=== PATIENT | male | born 1975 | race Caucasian/White ===

== ENCOUNTER 2016-10-30 20:56 | Emergency (ER) | payer MEDICAID ==
[2016-10-30 21:07] VITALS: BP 148/100
--- NOTE | 2016-10-30 21:46 | ED Physician Documentation ---
History of Present Illness - Stated complaint Stated Complaint: NUMBNESS RT SIDE - Chief complaint Chief Complaint: Neuro - History obtained from History obtained from: Patient, Family - History of Present Illness Timing: Today Pain level max: 0 Pain level now: 0 Improved by: klonopin Worsened by: nothing - Additonal information Additional information: Patient is a 41-year-old male who presents to the emergency department complaining of numbness to the lateral aspect of the forearm and approximately 3 cm area, the distal fingertips of the B hands and the distal B toes. Also to the lateral aspect of the right orbit, in an approximately 0.5 cm area. States that this is more tingling than numbness. States that this feels similar to his prior anxiety attacks in the past. No difficulty with speech. No weakness. No difficulty with word finding. No dysarthria. Patient states that he took an extra dose of his Klonopin prior to arrival and symptoms have now resolved Review of Systems Ten Systems: 10 systems reviewed and negative Constitutional: denies: Fever, Chills Throat: denies: Sore throat Cardiac: denies: Chest pain / pressure Respiratory: denies: Cough, Wheezing Skin: denies: Rash Musculoskeletal: denies: Neck pain, Back pain Neurologic: denies: Focal weakness, Confused, Altered mental status, Headache, Head injury Psychiatric: reports: Anxiety PD PAST MEDICAL HISTORY - Past Medical History Past Medical History: Yes Cardiovascular: Hypertension Respiratory: None Neuro: None Endocrine/Autoimmune: None : Other Psych: Depression, Anxiety, Bipolar disorder, Panic attacks - Past Surgical History Past Surgical History: No - Present Medications Home Medications: Ambulatory Orders Medication Instructions Recorded Confirmed Lisinopril 10 mg PO DAILY 01/03/16 10/31/16 Aripiprazole [Abilify] 20 mg PO DAILY 02/17/16 10/31/16 Clonazepam 1 mg PO BID 02/17/16 10/31/16 Sertraline HCl [Zoloft] 100 mg PO DAILY 02/17/16 10/31/16 Olanzapine [Zyprexa] 5 mg PO DAILY #5 tablet 03/19/16 10/31/16 Amoxicillin/Potassium Clav 1 each PO BID #20 tablet 03/22/16 10/31/16 [Augmentin 875-125 Tablet] - Allergies Allergies/Adverse Reactions: Allergies Allergy/AdvReac Type Severity Reaction Status Date / Time No Known Drug Allergies Allergy Verified 10/30/16 21:07 - Social History Does the pt smoke?: Yes Smoking Status: Current every day smoker Does the pt drink ETOH?: No Does the pt have substance abuse?: No - Immunizations Immunizations are current?: No Immunizations: TDAP >10years/unknown - POLST Patient has POLST: No PD ED PE NORMAL - Vitals Vital signs reviewed: Yes - General General: Alert and oriented X 3, No acute distress, Well developed/nourished - HEENT HEENT: PERRL, EOMI, Moist mucous membranes - Neck Neck: Supple, no meningeal sign - Cardiac Cardiac: RRR, Strong equal pulses - Respiratory Respiratory: No respiratory distress, Clear bilaterally - Abdomen Abdomen: Soft, Non tender, Non distended - Back Back: No spinal TTP - Derm Derm: Warm and dry - Neuro Neuro: Alert and oriented X 3, medical genetics director 2-12 intact, No motor deficit, No sensory deficit, Normal speech - Psych Psych: Normal mood, Normal affect Results - Vitals Vitals: Oxygen O2 Source Room air PD MEDICAL DECISION MAKING - ED course Complexity details: considered differential, d/w patient, d/w family ED course: Patient is a 41-year-old bipolar male who had paresthesias to the bilateral fingertips and bilateral toes as well as the lateral aspect of the right forearm and the lateral aspect of the right orbit. These all resolved with an extra dose of Klonopin at home. He now feels normal. NIH stroke scale of 0. No evidence of stroke at this time. No evidence of tumor or mass. Ambulating normally. Normal cerebellar test. We will have him follow-up with his doctor for further evaluation and care. Patient counseled regarding signs and symptoms for which I believe and urgent re-evaluation would be necessary. Patient with good understanding of and agreement to plan and is comfortable going home at this time This document was made in part using voice recognition software. While efforts are made to proofread this document, sound alike and grammatical errors may occur. Departure - Departure Disposition: 01 Home, Self Care Clinical Impression: Anxiety attack Condition: Good Instructions: ED Panic Attack Follow-Up: Kate Maurer ARNP [Primary Care Provider] - Within 1 week Comments: Return if you worsen. This appears to be related to your anxiety tonight Discharge Date/Time: 10/30/16 21:57
== END 2016-10-30 21:57 | disposition home or self-care (01) ==
LOC: ED 20:56
DX: F41.9 Anxiety disorder, unspecified (principal); I10 Essential (primary) hypertension; F17.200 Nicotine dependence, unspecified, uncomplicated
CPT/HCPCS: 99283

== ENCOUNTER 2016-10-31 15:36 | Emergency (ER) | payer MEDICAID ==
--- NOTE | 2016-10-31 18:13 | ED Physician Documentation ---
PD HPI MHE - Stated complaint Stated Complaint: DIZZY,PAIN BEHIND EARS - Chief complaint Chief Complaint: MHE - History obtained from History obtained from: Patient, Family - History of Present Illness Primary symptom: Other (auditory hallucinations) Timing - onset: Today Pain level max: 0 Pain level now: 0 Similar symptoms before: Diagnosis (bipolar) Recently seen: Not recently seen - Additional information Additional information: Patient states that he had a 20-30 minute episode in which he heard voices today. States he could not understand what they were saying but they were not telling him to harm himself or anyone else. Started on abilify today. Review of Systems Constitutional: denies: Fever, Chills Nose: denies: Rhinorrhea / runny nose, Congestion Respiratory: denies: Cough GI: denies: Nausea, Vomiting, Diarrhea Skin: denies: Rash Musculoskeletal: denies: Neck pain, Back pain Neurologic: denies: Headache Psychiatric: denies: Suicidal, Homicidal PD PAST MEDICAL HISTORY - Past Medical History Cardiovascular: Hypertension Respiratory: None Neuro: None Endocrine/Autoimmune: None : Other Psych: Depression, Anxiety, Bipolar disorder, Panic attacks - Past Surgical History Past Surgical History: No - Present Medications Home Medications: Ambulatory Orders Medication Instructions Recorded Confirmed Lisinopril 10 mg PO DAILY 01/03/16 10/31/16 Aripiprazole [Abilify] 20 mg PO DAILY 02/17/16 10/31/16 Clonazepam 1 mg PO BID 02/17/16 10/31/16 Sertraline HCl [Zoloft] 100 mg PO DAILY 02/17/16 10/31/16 Olanzapine [Zyprexa] 5 mg PO DAILY #5 tablet 03/19/16 10/31/16 Amoxicillin/Potassium Clav 1 each PO BID #20 tablet 03/22/16 10/31/16 [Augmentin 875-125 Tablet] - Allergies Allergies/Adverse Reactions: Allergies Allergy/AdvReac Type Severity Reaction Status Date / Time No Known Drug Allergies Allergy Verified 10/30/16 21:07 - Social History Does the pt smoke?: Yes Smoking Status: Current every day smoker Does the pt drink ETOH?: No Does the pt have substance abuse?: No - Immunizations Immunizations are current?: No Immunizations: TDAP >10years/unknown - POLST Patient has POLST: No PD ED PE NORMAL - Vitals Vital signs reviewed: Yes - General General: Alert and oriented X 3, No acute distress, Well developed/nourished - HEENT HEENT: PERRL, Ears normal, Moist mucous membranes, Pharynx benign - Neck Neck: Supple, no meningeal sign - Cardiac Cardiac: RRR - Respiratory Respiratory: No respiratory distress, Clear bilaterally - Abdomen Abdomen: Soft, Non tender, Non distended - Derm Derm: Warm and dry - Neuro Neuro: Alert and oriented X 3, animal breeder 2-12 intact, No motor deficit, No sensory deficit, Normal speech - Psych Psych: Normal mood, Normal affect Results - Vitals Vitals: Vital Signs - 24 hr 10/31/16 10/31/16 15:47 18:41 Temperature 36.0 C L 36.3 C L Heart Rate 108 H 98 Respiratory 16 18 Rate Blood Pressure 105/78 106/75 O2 Saturation 97 98 Oxygen O2 Source Room air PD MEDICAL DECISION MAKING - ED course Complexity details: reviewed old records, re-evaluated patient, considered differential, d/w patient, d/w family, d/w excellence consultant ED course: Patient is a 41-year-old bipolar male who presents to the emergency department with 20-30 minutes of auditory hallucinations today. Had been on Abilify in the past and this did work well for him. Took his first dose of Abilify today. Not currently suicidal or homicidal. Discussed the case with Xochilt Mendoza, whom the pt spoke with earlier today, from [facility] who recommends a next day appointment. This was scheduled through the [facility]. Patient is able to contract for safety and will follow up in the morning. Patient counseled regarding signs and symptoms for which I believe and urgent re-evaluation would be necessary. Patient with good understanding of and agreement to plan and is comfortable going home at this time This document was made in part using voice recognition software. While efforts are made to proofread this document, sound alike and grammatical errors may occur. Departure - Departure Disposition: 01 Home, Self Care Clinical Impression: Hallucinations Condition: Good Instructions: ED Psychosis Follow-Up: Kate Maurer ARNP [Primary Care Provider] - Within 1 week [facility] [Provider Group] - Tomorrow (10 am tomorrow) Comments: Follow up with [facility] in the morning at 10am. Discharge Date/Time: 10/31/16 18:41
[2016-10-31] MEDS ORDERED: OLANZapine ODT 5 MG TABLET TL ONE ×2 (18:38→18:41)
[2016-10-31 18:42] VITALS: BP 106/75
== END 2016-10-31 18:41 | disposition home or self-care (01) ==
LOC: ED 15:36
DX: R44.0 Auditory hallucinations (principal); F31.9 Bipolar disorder, unspecified; I10 Essential (primary) hypertension; F17.200 Nicotine dependence, unspecified, uncomplicated
CPT/HCPCS: 99283; A9270

== ENCOUNTER 2016-11-14 08:16 | Emergency (ER) | payer MEDICAID ==
[2016-11-14 08:24] VITALS: BP 142/104
--- NOTE | 2016-11-14 08:25 | ED Physician Documentation ---
PD HPI SKIN - Stated complaint Stated Complaint: MALE - Chief complaint Chief Complaint: General - History obtained from History obtained from: Patient - History of Present Illness Timing - onset: Yesterday Timing - duration: Days (2) Timing - details: Gradual onset, Still present Location: Other (area between rectum and base of scrotum) Quality / character: Painful, Burning, Discolored (red). No: Vesicular, Swelling Associated symptoms: No: Fever, Myalgias, Abd pain, N/V/D Similar symptoms before: Has not had sx before Recently seen: Not recently seen Review of Systems Constitutional: denies: Fever, Chills, Myalgias Throat: denies: Sore throat GI: denies: Abdominal Pain, Nausea, Vomiting, Diarrhea : denies: Dysuria, Frequency Skin: reports: Rash. denies: Abrasion (s), Laceration (s) PD PAST MEDICAL HISTORY - Past Medical History Past Medical History: Yes Cardiovascular: Hypertension Respiratory: None Neuro: None Endocrine/Autoimmune: None GI: None : Other HEENT: None Psych: Depression, Anxiety, Bipolar disorder, Panic attacks Musculoskeletal: None Derm: None - Past Surgical History Past Surgical History: No - Present Medications Home Medications: Ambulatory Orders Medication Instructions Recorded Confirmed Lisinopril 10 mg PO DAILY 01/03/16 10/31/16 Aripiprazole [Abilify] 20 mg PO DAILY 02/17/16 10/31/16 Clonazepam 1 mg PO BID 02/17/16 10/31/16 Sertraline HCl [Zoloft] 100 mg PO DAILY 02/17/16 10/31/16 Olanzapine [Zyprexa] 5 mg PO DAILY #5 tablet 03/19/16 10/31/16 Amoxicillin/Potassium Clav 1 each PO BID #20 tablet 03/22/16 10/31/16 [Augmentin 875-125 Tablet] Cephalexin [Keflex] 500 mg PO QID #24 capsule 11/14/16 Clotrimazole/Betamethasone Dip 1 applic TP BID #15 cream..g. 11/14/16 [Clotrimazole-Betamethasone Crm] - Allergies Allergies/Adverse Reactions: Allergies Allergy/AdvReac Type Severity Reaction Status Date / Time No Known Drug Allergies Allergy Verified 11/14/16 08:24 - Social History Does the pt smoke?: Yes Smoking Status: Current every day smoker Does the pt drink ETOH?: No Does the pt have substance abuse?: No - Immunizations Immunizations are current?: Yes Immunizations: TDAP current <10years - POLST Patient has POLST: No PD ED PE NORMAL - Vitals Vital signs reviewed: Yes - General General: Alert and oriented X 3, No acute distress, Well developed/nourished - Abdomen Abdomen: Normal bowel sounds, Soft, Non tender, Non distended - Rectal Rectal: Other (rectum itself is not tender and no hemorrhoids. Forchette area with redness in crease of skin and locally tender. No discharge. No focal induration felt; no abscess. The scrotum itself is not red nor tender. ) - Back Back: No CVA TTP - Extremities Extremities: No tenderness to palpate, Normal ROM s pain - Neuro Neuro: Alert and oriented X 3, No motor deficit, Normal speech Results - Vitals Vitals: Vital Signs - 24 hr 11/14/ 08:22 Temperature 36.1 C L Heart Rate 104 H Respiratory 20 Rate Blood Pressure 142/104 H O2 Saturation 100 Oxygen O2 Source Room air PD MEDICAL DECISION MAKING - ED course Complexity details: considered differential (tenderness with redness but no focal induration in the forchette area. Could be fungal infection topically with tenderness. Consider bacterial instead. He does not seem ill so doubt nec fasc. ), d/w patient Departure - Departure Disposition: 01 Home, Self Care Clinical Impression: Perirectal cellulitis Condition: Stable Record reviewed to determine appropriate education?: Yes Instructions: ED Infec Skin Cellulitis Follow-Up: Kate Maurer ARNP [Primary Care Provider] - Prescriptions: Clotrimazole/Betamethasone Dip [Clotrimazole-Betamethasone Crm] 1 applic TP BID #15 cream..g. Cephalexin [Keflex] 500 mg PO QID #24 capsule Comments: There looks to be some redness and a little bit of swelling in the perirectal area. I presume this is some infection. Topical antifungal cream for possible yeast infection. However usually does not hurt that much and so we will treated as bacterial possibly 2 with cephalexin 4 times a day for 5 or 6 days. Recheck if not improving in the next few days. Ibuprofen 400-600 mg 3 times a day for inflammation and pain. Warm soaks or cleansing with soap and water to the area 2 or 3 times a day. Discharge Date/Time: 11/14/16 08:45
[2016-11-14] MEDS ORDERED: CEPHALEXIN 250 MG CAPSULE PO STA (08:39)
[2016-11-14] MEDS ORDERED: IBUPROFEN 600 MG TABLET PO STA (08:39)
[2016-11-14] MEDS ORDERED: CEPHALEXIN 250 MG CAPSULE PO ONE (08:45)
[2016-11-14] MEDS ORDERED: IBUPROFEN 600 MG TABLET PO ONE (08:46)
== END 2016-11-14 08:45 | disposition home or self-care (01) ==
LOC: ED 08:16
DX: K61.1 Rectal abscess (principal); I10 Essential (primary) hypertension; F17.200 Nicotine dependence, unspecified, uncomplicated
CPT/HCPCS: 99283; A9270

== ENCOUNTER 2016-11-18 11:44 | Emergency (ER) | payer MEDICAID ==
--- NOTE | 2016-11-18 12:23 | ED Physician Documentation ---
PD HPI MALE - Stated complaint Stated Complaint: ABD PX - Chief complaint Chief Complaint: Abd Pain - History obtained from History obtained from: Patient - History of Present Illness Timing - onset: How many days ago (5) Timing - details: Abrupt onset Pain level max: 8 Pain level now: 8 Associated symptoms: Other (rectal pain) Similar symptoms before: Has not had sx before Recently seen: Emergency Dept (3 days ago for same) - Additional information Additional information: Patient states has been constipated recently, during a BM felt a tear. Now continued pain. Review of Systems Constitutional: denies: Fever, Chills GI: reports: Constipation. denies: Abdominal Pain, Nausea, Vomiting, Diarrhea : denies: Dysuria Skin: denies: Rash Musculoskeletal: denies: Neck pain, Back pain PD PAST MEDICAL HISTORY - Past Medical History Past Medical History: Yes Cardiovascular: Hypertension Respiratory: None Neuro: None Endocrine/Autoimmune: None GI: None : Other HEENT: None Psych: Depression, Anxiety, Bipolar disorder, Panic attacks Musculoskeletal: None Derm: None - Past Surgical History Past Surgical History: No - Present Medications Home Medications: Ambulatory Orders Medication Instructions Recorded Confirmed Lisinopril 10 mg PO DAILY 01/03/16 11/18/16 Aripiprazole [Abilify] 20 mg PO DAILY 02/17/16 11/18/16 Clonazepam 1 mg PO BID 02/17/16 11/18/16 Sertraline HCl [Zoloft] 100 mg PO DAILY 02/17/16 11/18/16 Olanzapine [Zyprexa] 5 mg PO DAILY #5 tablet 03/19/16 11/18/16 Cephalexin [Keflex] 500 mg PO QID #24 capsule 11/14/16 11/18/16 Clotrimazole/Betamethasone Dip 1 applic TP BID #15 cream..g. 11/14/16 11/18/16 [Clotrimazole-Betamethasone Crm] Docusate Sodium 250Mg Capsule 250 mg PO DAILY #30 capsule 11/18/16 [Colace 250Mg Capsule] Nitroglycerin [Rectiv] 1 applic RC BID #1 oint...g. 11/18/16 - Allergies Allergies/Adverse Reactions: Allergies Allergy/AdvReac Type Severity Reaction Status Date / Time No Known Drug Allergies Allergy Verified 11/18/16 11:54 - Social History Does the pt smoke?: Yes Smoking Status: Current every day smoker Does the pt drink ETOH?: No Does the pt have substance abuse?: No - Immunizations Immunizations are current?: Yes Immunizations: TDAP current <10years - POLST Patient has POLST: No PD ED PE NORMAL - Vitals Vital signs reviewed: Yes - General General: Alert and oriented X 3, No acute distress - HEENT HEENT: Moist mucous membranes - Neck Neck: Supple, no meningeal sign - Cardiac Cardiac: RRR - Respiratory Respiratory: No respiratory distress, Clear bilaterally - Abdomen Abdomen: Soft, Non tender - Rectal Rectal: Other (TTP over the posterior aspect of the anal sphincter. No tenderness or erythema of the surrounding skin. no bleeding. no internal tenderness. ) - Derm Derm: Warm and dry - Neuro Neuro: Alert and oriented X 3 - Psych Psych: Normal mood, Normal affect Results - Vitals Vitals: Vital Signs - 24 hr 11/18/16 11/18/16 11:52 12:41 Temperature 36.7 C Heart Rate 103 H 91 Respiratory 14 16 Rate Blood Pressure 140/94 H 136/88 H O2 Saturation 100 98 Oxygen O2 Source Room air PD MEDICAL DECISION MAKING - ED course Complexity details: reviewed old records, considered differential, d/w patient ED course: Patient is a 41-year-old male who presents to the emergency department with an apparent rectal fissure. No evidence of abscess, no evidence of infection. Patient is well-appearing, nontoxic. No internal tenderness. All of the pain is localized to the 12 o'clock position of the anal sphincter. Will place on topical nitroglycerin as well as stool softeners. Patient counseled regarding signs and symptoms for which I believe and urgent re-evaluation would be necessary. Patient with good understanding of and agreement to plan and is comfortable going home at this time This document was made in part using voice recognition software. While efforts are made to proofread this document, sound alike and grammatical errors may occur. Departure - Departure Disposition: 01 Home, Self Care Clinical Impression: Rectal fissure Condition: Good Instructions: ED Fissure Anal Ch, Sitz Bath Follow-Up: Kate Maurer ARNP [Primary Care Provider] - Within 3 Days Prescriptions: Docusate Sodium 250Mg Capsule [Colace 250Mg Capsule] 250 mg PO DAILY #30 capsule Nitroglycerin [Rectiv] 1 applic RC BID #1 oint...g. Comments: Use sitz baths twice daily for 10-15 minutes at a time. Your doctor may want to prescribe topical medication if you are not improving with conservative treatment. Return if you worsen. The nitroglycerin cream only requries a small amount at the area of pain. Use it twice daily for a month. Your blood pressure was elevated today on check in to the emergency department. This does not mean that you have hypertension, it is a common phenomenon to check into the emergency department and have elevated blood pressure. I recommend that you see your primary care physician within the week to have it rechecked when you're feeling better. Discharge Date/Time: 11/18/16 12:35
[2016-11-18 12:42] VITALS: BP 136/88
== END 2016-11-18 12:35 | disposition home or self-care (01) ==
LOC: ED 11:44
DX: K60.2 Anal fissure, unspecified (principal); I10 Essential (primary) hypertension; F17.200 Nicotine dependence, unspecified, uncomplicated
CPT/HCPCS: 99283

== ENCOUNTER 2016-11-21 13:43 | Emergency (ER) | payer MEDICAID ==
--- NOTE | 2016-11-21 14:48 | ED Physician Documentation ---
PD HPI HEENT FB - Chief complaint Chief Complaint: Heent - History obtained from History obtained from: Patient - History of Present Illness Timing - onset: Other (Today he has had fullness in both ears with a sensation of liquid from the canals and ringing in both ears. There is no loss of hearing. He has not been sick per se, no runny nose, sore throat, cough, shortness of breath. He is on Keflex for a fungal infection he says in his groin, I showed them the picture of Keflex and he did confirm that was the pill. That is not a known side effect of Keflex. He denies any other new medications and he is not taking aspirin or any other salicylates.) Review of Systems Constitutional: denies: Fever, Chills Ears: reports: Drainage/discharge, Tinnitus/ringing. denies: Loss of hearing, Ear pain, Foreign body Nose: denies: Rhinorrhea / runny nose, Congestion PD PAST MEDICAL HISTORY - Past Medical History Past Medical History: Yes Cardiovascular: Hypertension Respiratory: None Neuro: None Endocrine/Autoimmune: None GI: None : Other HEENT: None Psych: Depression, Anxiety, Bipolar disorder, Panic attacks Musculoskeletal: None Derm: None - Past Surgical History Past Surgical History: No - Present Medications Home Medications: Ambulatory Orders Medication Instructions Recorded Confirmed Lisinopril 10 mg PO DAILY 01/03/16 11/21/16 Aripiprazole [Abilify] 20 mg PO DAILY 02/17/16 11/21/16 Clonazepam 1 mg PO BID 02/17/16 11/21/16 Sertraline HCl [Zoloft] 100 mg PO DAILY 02/17/16 11/21/16 Clotrimazole/Betamethasone Dip 1 applic TP BID #15 cream..g. 11/14/16 11/21/16 [Clotrimazole-Betamethasone Crm] Docusate Sodium 250Mg Capsule 250 mg PO DAILY #30 capsule 11/18/16 11/21/16 [Colace 250Mg Capsule] Neomycin/Polymyx/Hc Otic Drops 4 drops OT TID #1 bottle 11/21/16 [Cortisporin Ear Susp] - Allergies Allergies/Adverse Reactions: Allergies Allergy/AdvReac Type Severity Reaction Status Date / Time No Known Drug Allergies Allergy Verified 11/21/16 13:48 - Social History Does the pt smoke?: Yes Smoking Status: Current every day smoker Does the pt drink ETOH?: No Does the pt have substance abuse?: No - Immunizations Immunizations are current?: Yes Immunizations: TDAP current <10years - POLST Patient has POLST: No PD ED PE NORMAL - Vitals Vital signs reviewed: Yes - General General: Alert and oriented X 3, No acute distress - HEENT HEENT: PERRL, EOMI, Other (TMs are normal, there is mild inflammation of both canals, there is no significant cerumen to speak of. No bony tenderness or mastoid tenderness.) - Neck Neck: Supple, no meningeal sign, No bony TTP - Neuro Neuro: Alert and oriented X 3, poultry culler 2-12 intact, No motor deficit, No sensory deficit, Normal speech - Psych Psych: Normal mood, Normal affect Results - Vitals Vitals: Vital Signs - 24 hr 11/21/16 11/21/16 13:46 15:06 Temperature 36.6 C Heart Rate 103 H 105 H Respiratory 16 20 Rate Blood Pressure 146/96 H 138/87 H O2 Saturation 91 L 96 Oxygen O2 Source Room air PD MEDICAL DECISION MAKING - ED course ED course: Tenderness and a sensation of drainage for the last few hours without objective evidence of ear infection or cerumen impaction. Could be a mild case of otitis externa, we will trial some eardrops but he is referred to ENT for further evaluation and treatment. Departure - Departure Disposition: 01 Home, Self Care Clinical Impression: Tinnitus of both ears Condition: Good Record reviewed to determine appropriate education?: Yes Instructions: Tinnitus Prescriptions: Neomycin/Polymyx/Hc Otic Drops [Cortisporin Ear Susp] 4 drops OT TID #1 bottle Comments: I recommend following up with an ear nose and throat physician if symptoms are persistent for further evaluation and treatment, the closest is in [address], the number is [phone]. Return if worse. Your blood pressure was elevated today on check into the emergency department. This does not mean that you have hypertension, it is a common phenomenon to come to the emergency department and have elevated blood pressure. I recommend that she see her primary care physician within the week to have it rechecked when you are feeling better. Discharge Date/Time: 11/21/16 15:06
[2016-11-21 15:07] VITALS: BP 138/87
== END 2016-11-21 15:06 | disposition home or self-care (01) ==
LOC: ED 13:43
DX: H93.13 Tinnitus, bilateral (principal); I10 Essential (primary) hypertension; F17.200 Nicotine dependence, unspecified, uncomplicated
CPT/HCPCS: 99282; 99283

== ENCOUNTER 2016-12-01 19:24 | Emergency (ER) | payer MEDICAID ==
[2016-12-01 20:00] LABS: BASOPHILS % (AUTO) 0.5 %; EOSINOPHILS # (AUTO) 0.3 10^3/uL (0.0-0.7); EOSINOPHILS % (AUTO) 3.1 %; HCT - HEMATOCRIT 43.2 % (42.0-52.0); HGB - HEMOGLOBIN 15.1 g/dL (14.0-18.0); LYMPHOCYTES # (AUTO) 2.5 10^3/uL (1.5-3.5); LYMPHOCYTES % (AUTO) 27.6 %; MEAN CORPUSCULAR HEMOGLOBIN 30.3 pg (27.0-31.0); MEAN CORPUSCULAR HGB CONC 34.8 g/dL (32.0-36.0); MEAN PLATELET VOLUME 9.2 fL (7.4-11.4); MONOCYTES # (AUTO) 0.6 10^3/uL (0.0-1.0); NEUTROPHILS # (AUTO) 5.8 10^3/uL (1.5-6.6); NEUTROPHILS % (AUTO) 62.8 %; RED BLOOD COUNT 4.97 10^6/uL (4.70-6.10); RED CELL DISTRIBUTION WIDTH 12.5 % (12.0-15.0); UNCORRECTED WHITE BLOOD COUNT 9.2 x10^3/uL; WHITE BLOOD COUNT 9.2 x10^3/uL (4.8-10.8)
[2016-12-01 20:06] LABS: ALBUMIN/GLOBULIN RATIO 1.3 (1.0-2.2); BILIRUBIN,TOTAL 0.4 mg/dL (0.2-1.0); CREATININE 0.8 mg/dL (0.6-1.2); POTASSIUM 3.5 mmol/L (3.5-5.0)
--- NOTE | 2016-12-01 20:09 | XRAY Preliminary Report ---
Exam: XR Chest 1 View IMPRESSION: Normal single view chest. [facility] SITE ID: [id number]
--- NOTE | 2016-12-01 20:11 | XRAY Report ---
EXAM: CHEST RADIOGRAPHY EXAM DATE: 12/01/2016 07:47 PM. CLINICAL HISTORY: Chest pain. COMPARISON: 2 views 12/27/2015. TECHNIQUE: 1 view. FINDINGS: Lungs/Pleura: No focal opacities evident. No pleural effusion. No pneumothorax. Mediastinum: Within exam limitations, cardiomediastinal contour is normal. Other: None. IMPRESSION: Normal single view chest. [facility] Referring Provider Line: [phone] SITE ID: [id number]
--- NOTE | 2016-12-01 20:23 | ED Physician Documentation ---
PD HPI CHEST PAIN - Stated complaint Stated Complaint: CHEST PX - Chief complaint Chief Complaint: Cardiac - History obtained from History obtained from: Patient, Family - History of Present Illness Timing - onset: Today Timing - onset during: Rest Timing - details: Gradual onset, Now resolved Quality: Pressure, Tightness Location: Substernal, Left chest Improved by: Rest Associated symptoms: No: Shortness of air, General Weakness Similar symptoms before: Work up / diagnostics, Treatment Recently seen: Not recently seen - Additional information Additional information: Patient is a 41 year old male with a history of severe anxiety who is presenting to the emergency department for chest pain. Patient states that it started earlier this evening but is getting better on its own. patient has a history of panic attacks but states that this feels a little difference. patient denies any family history of early cardiac disease. Review of Systems Constitutional: denies: Fever, Chills Eyes: denies: Decreased vision, Photophobia Ears: denies: Ear pain, Drainage/discharge Nose: denies: Congestion, Epistaxis Throat: denies: Sore throat Cardiac: reports: Chest pain / pressure. denies: Palpitations, Calf pain Respiratory: denies: Dyspnea, Cough GI: denies: Nausea, Vomiting Skin: denies: Rash, Lesions Musculoskeletal: denies: Neck pain, Back pain, Extremity pain Neurologic: denies: Generalized weakness, Focal weakness Psychiatric: reports: Depressed, Anxiety PD PAST MEDICAL HISTORY - Past Medical History Past Medical History: Yes Cardiovascular: Hypertension Respiratory: None Neuro: None Endocrine/Autoimmune: None GI: None : Other HEENT: None Psych: Depression, Anxiety, Bipolar disorder, Panic attacks Musculoskeletal: None Derm: None - Past Surgical History Past Surgical History: No - Present Medications Home Medications: Ambulatory Orders Medication Instructions Recorded Confirmed Lisinopril 10 mg PO DAILY 01/03/16 12/01/16 Aripiprazole [Abilify] 20 mg PO DAILY 02/17/16 12/01/16 Clonazepam 1 mg PO BID 02/17/16 12/01/16 Sertraline HCl [Zoloft] 100 mg PO DAILY 02/17/16 12/01/16 - Allergies Allergies/Adverse Reactions: Allergies Allergy/AdvReac Type Severity Reaction Status Date / Time No Known Drug Allergies Allergy Verified 12/01/16 19:31 - Social History Does the pt smoke?: Yes Smoking Status: Current every day smoker Does the pt drink ETOH?: No Does the pt have substance abuse?: No - Immunizations Immunizations are current?: Yes Immunizations: TDAP current <10years - POLST Patient has POLST: No PD ED PE NORMAL - Vitals Vital signs reviewed: Yes - General General: Alert and oriented X 3, No acute distress, Well developed/nourished - HEENT HEENT: Atraumatic, PERRL, Pharynx benign - Neck Neck: Supple, no meningeal sign, No JVD - Cardiac Cardiac: RRR, No murmur - Respiratory Respiratory: No respiratory distress - Abdomen Abdomen: Soft, Non tender, Non distended - Derm Derm: Normal color, Warm and dry, No rash - Extremities Extremities: No deformity - Neuro Neuro: Alert and oriented X 3, 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, No motor deficit, No sensory deficit, Normal speech - Psych Psych: Normal mood, Normal affect PD ED PE EXPANDED - General General: Alert, No acute distress Results - Vitals Vitals: Vital Signs - 24 hr 12/01/16 19:29 Temperature 36.8 C Heart Rate 84 Respiratory 18 Rate Blood Pressure 139/96 H O2 Saturation 97 Oxygen O2 Source Room air - EKG (time done) 2000 Rate: Rate (enter#) (71) Rhythm: NSR Leopold: Normal Intervals: Normal SD QRS: Normal Ischemia: Normal ST segments Compare to prior EKG: Unchanged from prior EKG - Labs Labs: Laboratory Tests 12/01/16 12/01/16 12/01/16 19:48 19:48 19:48 WBC 9.2 RBC 4.97 Hgb 15.1 Hct 43.2 MCV 87.0 MCH 30.3 MCHC 34.8 RDW 12.5 Plt Count 255 MPV 9.2 Neut # 5.8 Lymph # 2.5 Sumner # 0.6 Eos # 0.3 Baso # 0.0 Absolute Nucleated RBC 0.00 Nucleated RBCs 0.0 Sodium 140 Potassium 3.5 Chloride 103 Carbon Dioxide 29 Anion Gap 8.0 BUN 14 Creatinine 0.8 Estimated GFR (MDRD) 107 Glucose 87 Calcium 9.0 Total Bilirubin 0.4 AST 16 ALT 14 Alkaline Phosphatase 70 Troponin I < 0.04 Total Protein 7.0 Albumin 3.9 Globulin 3.1 Albumin/Globulin Ratio 1.3 Lipase 34 - Rads (name of study) chest x-ray Radiology: Final report received (no acute disease process) PD MEDICAL DECISION MAKING - ED course Complexity details: reviewed old records, reviewed results, re-evaluated patient , considered differential, d/w patient, d/w family ED course: Patient was seen and examined at bedside. ekg was performed and within normal limits. Patient's other diagnostics including troponin and chest x-ray were negative. Patient had a HEART score of 1 and was stable for discharge with outpatient follow up. Departure - Departure Disposition: 01 Home, Self Care Clinical Impression: Atypical chest pain Condition: Good Instructions: ED Chest Pain NonCardiac Follow-Up: Kate Maurer ARNP [Primary Care Provider] - Within 1 week Comments: Your diagnostics today were within normal limits. there was no sign of cardiac disease. You should still follow up with your pmd for further evaluation and care if this becomes more frequent. You can return to the emergency department at any time for new, worsening or uncontrollable symptoms.
[2016-12-01 20:54] VITALS: BP 119/65
== END 2016-12-01 20:54 | disposition home or self-care (01) ==
LOC: ED 19:24
DX: R07.89 Other chest pain (principal); F32.9 Major depressive disorder, single episode, unspecified; F41.9 Anxiety disorder, unspecified; I10 Essential (primary) hypertension; F17.200 Nicotine dependence, unspecified, uncomplicated
CPT/HCPCS: 36415; 71010; 80053; 83690; 84484; 85025; 93005; 99283

== ENCOUNTER 2021-12-23 09:26 | Emergency (ER) | payer MEDICAID ==
[2021-12-23 10:17] VITALS: BP 186/123
[2021-12-23 10:55] LABS: BASOPHILS # (AUTO) 0.1 10^3/uL (0.0-0.1); BASOPHILS % (AUTO) 0.9 %; EOSINOPHILS # (AUTO) 0.2 10^3/uL (0.0-0.7); EOSINOPHILS % (AUTO) 1.6 %; HCT - HEMATOCRIT 45.7 % (42.0-52.0); HGB - HEMOGLOBIN 15.9 g/dL (14.0-18.0); LYMPHOCYTES # (AUTO) 2.1 10^3/uL (1.5-3.5); LYMPHOCYTES % (AUTO) 16.6 %; MEAN CORPUSCULAR HEMOGLOBIN 28.8 pg (27.0-31.0); MEAN CORPUSCULAR HGB CONC 34.8 g/dL (32.0-36.0); MEAN CORPUSCULAR VOLUME 82.6 fL (80.0-94.0); MEAN PLATELET VOLUME 10.4 fL (7.4-11.4); MONOCYTES # (AUTO) 0.8 10^3/uL (0.0-1.0); MONOCYTES % (AUTO) 6.3 %; NEUTROPHILS # (AUTO) 9.4 10^3/uL (1.5-6.6); NEUTROPHILS % (AUTO) 73.9 %; PLT - PLATELET COUNT 331 10^3/uL (130-450); RED BLOOD COUNT 5.53 10^6/uL (4.70-6.10); WHITE BLOOD COUNT 12.7 x10^3/uL (4.8-10.8)
[2021-12-23 11:08] LABS: ALBUMIN 4.4 g/dL (3.2-5.5); ALBUMIN/GLOBULIN RATIO 1.4 (1.0-2.2); CALCIUM 9.1 mg/dL (8.5-10.3); POTASSIUM 3.3 mmol/L (3.5-5.0); TOTAL PROTEIN 7.5 g/dL (6.7-8.2)
[2021-12-23 11:28] LABS: BILIRUBIN,URINE NEGATIVE (NEGATIVE); GLUCOSE, URINE (UA) NEGATIVE (NEGATIVE); KETONES,URINE (UA) NEGATIVE (NEGATIVE); LEUKOCYTE ESTERASE, URINE NEGATIVE (NEGATIVE); NITRITE,URINE NEGATIVE (NEGATIVE); OCCULT BLOOD,URINE TRACE-INTA (NEGATIVE); PH,URINE 5.5 PH (5.0-7.5); PROTEIN,URINE NEGATIVE (NEGATIVE); UROBILINOGEN,URINE 0.2 (NORMAL) E.U./dL (NORMAL)
[2021-12-23 11:29] LABS: CLARITY,URINE CLEAR (CLEAR)
== END 2021-12-23 13:08 | disposition home or self-care (01) ==
LOC: ED 09:26
DX: Z53.21 Procedure and treatment not carried out due to patient leaving prior to being seen by health care provider (principal)
CPT/HCPCS: 36415; 80053; 81001; 81003; 83690; 85025; 87086

== ENCOUNTER 2021-12-23 18:05 | Emergency (ER) | payer MEDICAID ==
[2021-12-23 18:11] VITALS: BP 191/120
[2021-12-23] MEDS ORDERED: LORazepam 2 MG/ML VIAL IVP STA (18:25)
[2021-12-23] MEDS ORDERED: SODIUM CHLORIDE 0.9% 1,000 ML IV STA (18:26)
--- NOTE | 2021-12-23 18:27 | ED Physician Documentation ---
PD HPI ABD PAIN - Stated complaint Stated Complaint: ABD/EAR PX - Chief complaint Chief Complaint: Abd Pain - History obtained from History obtained from: Patient - Additional information Additional information: 46-year-old gentleman who and anxiety presents for the evaluation of abdominal pain. He has central diffuse migratory abdominal pain that is sometimes sharp sometimes dull since yesterday. 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 No history of abdominal surgeries in the past. He also notes bilateral ear ringing. He was seen here earlier in the day but ended up leaving prior to physician evaluation. Since then he notes ringing in the ears. He did have triage orders done during his earlier visit in the day, he had a normal CBC with the exception of white count of 12.7, normal metabolic panel with the exception of a potassium of 3.3, and a urinalysis was normal with the exception of a specific gravity higher than 1.03. He denies drug use except for occasional marijuana. Review of the chart shows that he does have a history of methamphetamine abuse. He is here with his uncle. Review of Systems Ten Systems: 10 systems reviewed and negative Constitutional: denies: Fever, Chills Nose: denies: Rhinorrhea / runny nose, Congestion Respiratory: denies: Dyspnea, Cough PD PAST MEDICAL HISTORY - Past Medical History Past Medical History: Yes Cardiovascular: Hypertension Respiratory: None Neuro: None Endocrine/Autoimmune: None GI: None : Other HEENT: None Psych: Depression, Anxiety, Bipolar disorder, Panic attacks Musculoskeletal: None Derm: Other - Past Surgical History Past Surgical History: Yes Ortho: Other - Present Medications Home Medications: Ambulatory Orders Medication Instructions Recorded Confirmed lisinopriL [Lisinopril] 10 mg PO DAILY 01/03/16 12/01/16 Aripiprazole [Abilify] 20 mg PO DAILY 02/17/16 12/01/16 Sertraline HCl [Zoloft] 100 mg PO DAILY 02/17/16 12/01/16 clonazePAM [Clonazepam] 1 mg PO BID 02/17/16 12/01/16 - Allergies Allergies/Adverse Reactions: Allergies Allergy/AdvReac Type Severity Reaction Status Date / Time No Known Drug Allergies Allergy Verified 12/23/21 18:08 - Social History Does the pt smoke?: No Smoking Status: Never smoker Does the pt drink ETOH?: No Does the pt have substance abuse?: Yes Substance Use and Type: Marijuana - Immunizations Immunizations are current?: Yes Immunizations: TDAP current <10years - POLST Patient has POLST: No PD ED PE NORMAL - Vitals Vital signs reviewed: Yes - General General: Alert and oriented X 3, Other (He is fidgety and anxious,) - HEENT HEENT: Other (TMs are normal in both sides. He is a picked at scab on the anterior surface of the left ear canal.) - Neck Neck: Supple, no meningeal sign, No bony TTP - Cardiac Cardiac: RRR, No murmur - Respiratory Respiratory: No respiratory distress, Clear bilaterally - Abdomen Abdomen: Normal bowel sounds, Soft, Non tender - Back Back: No CVA TTP, No spinal TTP - Derm Derm: Normal color, Warm and dry - Extremities Extremities: No edema, No calf tenderness / cord - Neuro Neuro: Alert and oriented X 3, Normal speech Results - Vitals Vitals: Vital Signs - 24 hr 12/23/21 12/23/21 18:08 18:11 Temperature 37 C 37.0 C Heart Rate 115 H 115 H Respiratory 20 20 Rate Blood Pressure 191/120 H 191/120 H O2 Saturation 99 99 Oxygen O2 Source Room air - Labs Labs: Laboratory Tests 12/23/21 18:25 Urine Opiates Screen NEGATIVE Ur Oxycodone Screen NEGATIVE Urine Methadone Screen NEGATIVE Ur Propoxyphene Screen NEGATIVE Ur Barbiturates Screen NEGATIVE Ur Tricyclics Screen NEGATIVE Ur Phencyclidine Scrn NEGATIVE Ur Amphetamine Screen NEGATIVE U Methamphetamines Scrn POSITIVE H U Benzodiazepines Scrn NEGATIVE Urine Cocaine Screen NEGATIVE U Cannabinoids Screen NEGATIVE PD MEDICAL DECISION MAKING - ED course ED course: 46-year-old gentleman presents for abdominal pain, benign exam, no localizing features. He is fidgety and tachycardic, review of the chart shows a history of methamphetamine abuse although he denies this. That said his drug screen is positive for same and CT negative for acute pathology. I offered him medication for anxiety and Cortisporin for the sores in his ears. When I offered him help with his methamphetamine abuse he became agitated and declined any further intervention. Departure - Departure Disposition: 01 Home, Self Care Clinical Impression: Methamphetamine abuse Abdominal pain Qualifiers: Abdominal location: generalized Qualified Code(s): R10.84 - Generalized abdominal pain Condition: Good Record reviewed to determine appropriate education?: Yes Instructions: ED Drug Abuse General, ED Abdominal Pain Unkn Cause Male Comments: You are seen today for abdominal pain, thankfully nothing serious came up, the CAT scan was normal. I have offered you medications for anxiety and the sores in your ears which you have declined. I also offered you social work help for your methamphetamine abuse which you have declined. Return anytime if you would like to reconsider. Follow-up with your primary care physician, next available appointment.
[2021-12-23 18:28] LABS: MUDS CUTOFF CONCENTRATIONS CUTOFF CONC BELOW:
[2021-12-23 18:41] LABS: AMPHETAMINE SCREEN,URINE NEGATIVE (NEGATIVE); BARBITURATE SCREEN,UR NEGATIVE (NEGATIVE); BENZODIAZEPINES SCREEN, URINE NEGATIVE (NEGATIVE); COCAINE SCREEN URINE NEGATIVE (NEGATIVE); METHADONE SCREEN, URINE NEGATIVE (NEGATIVE); METHAMPHETAMINES SCREEN, URINE POSITIVE (NEGATIVE); OPIATE SCREEN, URINE NEGATIVE (NEGATIVE); OXYCODONE SCREEN, URINE NEGATIVE (NEGATIVE); PROPOXYPHENE SCREEN, URINE NEGATIVE (NEGATIVE); THC CANNABINOID SCREEN, URINE NEGATIVE (NEGATIVE); TRICYCLIC ANTIDEPRESSANT,URINE NEGATIVE (NEGATIVE)
--- NOTE | 2021-12-23 19:08 | CT Report ---
PROCEDURE: Abdomen/Pelvis W INDICATIONS: IV only, abd pain CONTRAST: IV CONTRAST: Optiray 320 ml: 100 PO CONTRAST: *NO PO CONTRAST TECHNIQUE: After the administration of IV contrast, 5 mm thick sections acquired from the diaphragms to the symp hysis. 5 mm thick coronal and sagittal reformats were acquired. For radiation dose reduction, the f ollowing was used: automated exposure control, adjustment of mA and/or kV according to patient size. COMPARISON: None. FINDINGS: Image quality: Excellent. ABDOMEN: Lung bases: Lung bases are clear. Heart size is normal. Solid organs: Liver and spleen are normal in size and enhancement. Gallbladder is unremarkable. Bi liary system is non dilated. Pancreas enhances normally. No adrenal nodules. Kidneys demonstrate n ormal size and enhancement, without hydronephrosis. Peritoneum and bowel: Bowel loops demonstrate normal wall thickness and caliber. No free fluid or a ir. Appendix is normal. Nodes and vessels: No retroperitoneal or mesenteric adenopathy by size criteria. Aorta and inferior vena cava are normal in size. Miscellaneous: No ventral hernias. PELVIS: Genitourinary: Bladder wall thickness is normal. Miscellaneous: No inguinal hernias or adenopathy. Bones: No suspicious bony lesions. No vertebral body compression fractures. IMPRESSION: No acute intra-abdominal or pelvic process. Reviewed by: Salina Heath MD on 12/23/2021 7:07 PM PDT Approved by: Salina Heath MD on 12/23/2021 7:07 PM PDT Station ID: [id number]
== END 2021-12-23 19:38 | disposition home or self-care (01) ==
LOC: ED 18:05
DX: F15.10 Other stimulant abuse, uncomplicated (principal); R10.84 Generalized abdominal pain; L98.9 Disorder of the skin and subcutaneous tissue, unspecified
CPT/HCPCS: 36415; 74177; 80306; 96374; 99284; 99285; J2060; Q9967

== ENCOUNTER 2021-12-25 03:53 | Emergency (ER) | payer MEDICAID ==
[2021-12-25] MEDS ORDERED: IBUPROFEN 600 MG TABLET PO STA (04:18)
--- NOTE | 2021-12-25 04:22 | ED Physician Documentation ---
PD HPI HEENT - Stated complaint Stated Complaint: EAR PAIN - Chief complaint Chief Complaint: Heent - History obtained from History obtained from: Patient - Additional information Additional information: The patient comes to the emergency department chief complaint of pain the anterior aspect of the entrances to both his external auditory canals. He is not really sure along this is been going on but he would estimate a couple of days, he thinks. He denies fevers or chills. No change in his hearing other than development of some tinnitus over an unclear period of time, but he thinks the last couple days as well. The patient denies any swelling. He thinks he may have had some drainage but he is not sure. No upper respiratory symptoms. The patient denies any head trauma or barotrauma. He does not chronically use your plugs or other ear devices. The patient was just seen here yesterday for abdominal pain, but also complained of tinnitus at that same time. He was offered Cortisporin eardrops but declined these. His drug screen was positive for methamphetamines, though he had only admitted to using them in the past. Review of Systems Ten Systems: 10 systems reviewed and negative Constitutional: reports: Reviewed and negative Eyes: reports: Reviewed and negative Ears: reports: Ear pain, Tinnitus/ringing Nose: reports: Reviewed and negative Throat: reports: Reviewed and negative Cardiac: reports: Reviewed and negative Respiratory: reports: Reviewed and negative GI: reports: Reviewed and negative : reports: Reviewed and negative Skin: reports: Reviewed and negative Musculoskeletal: reports: Reviewed and negative Neurologic: reports: Reviewed and negative Psychiatric: reports: Reviewed and negative Endocrine: reports: Reviewed and negative Immunocompromised: reports: Reviewed and negative PD PAST MEDICAL HISTORY - Past Medical History Past Medical History: Yes Cardiovascular: Hypertension Respiratory: None Neuro: None Endocrine/Autoimmune: None GI: None : Other HEENT: None Psych: Depression, Anxiety, Bipolar disorder, Panic attacks Musculoskeletal: None Derm: Other - Past Surgical History Past Surgical History: Yes Ortho: Other - Present Medications Home Medications: Ambulatory Orders Medication Instructions Recorded Confirmed lisinopriL [Lisinopril] 10 mg PO DAILY 01/03/16 12/01/16 Aripiprazole [Abilify] 20 mg PO DAILY 02/17/16 12/01/16 Sertraline HCl [Zoloft] 100 mg PO DAILY 02/17/16 12/01/16 clonazePAM [Clonazepam] 1 mg PO BID 02/17/16 12/01/16 - Allergies Allergies/Adverse Reactions: Allergies Allergy/AdvReac Type Severity Reaction Status Date / Time No Known Drug Allergies Allergy Verified 12/25/21 03:56 - Social History Does the pt smoke?: No Smoking Status: Never smoker Does the pt drink ETOH?: No Does the pt have substance abuse?: Yes - Immunizations Immunizations are current?: Yes Immunizations: TDAP current <10years - POLST Patient has POLST: No PD ED PE NORMAL - Vitals Vital signs reviewed: Yes - General General: Other (The patient is alert, but fidgety and irritable.) - HEENT HEENT: Atraumatic, PERRL, EOMI, Moist mucous membranes, Dentition benign (No TMJ tenderness or clicking. No facial swelling.), Other (Your exam is entirely normal with the exception of some ill-defined tenderness at the anterior edge of the introitus to the external auditory canals bilaterally. There is no erythema, swelling, or fluctuance. Ear canals are normal. TMs are normal. No mastoid tenderness.) - Neck Neck: Supple, no meningeal sign - Respiratory Respiratory: No respiratory distress - Derm Derm: Normal color, Warm and dry, No rash - Extremities Extremities: No deformity - Neuro Neuro: Other (Alert and grossly oriented.) - Psych Psych: Normal mood, Normal affect Results - Vitals Vitals: Vital Signs - 24 hr 12/25/21 03:56 Temperature 36.4 C L Heart Rate 91 Respiratory 19 Rate Blood Pressure 152/90 H O2 Saturation 98 Oxygen O2 Source Room air PD MEDICAL DECISION MAKING - ED course Complexity details: considered differential, d/w patient, d/w family ED course: I did examine the patient's ears and advised him that I do not see an obvious cause for his pain. Patient was not receptive and constantly interrupted me as of trying to speak to him. He also repeatedly pulled the bill of his hat down over his eyes while he was trying to talk to him and became argumentative. At this point in time, I have offered him ibuprofen and advised him that I have not found anything wrong with his ears and I am not sure why he is experiencing pain. Since the patient refuses to take part in any conversation about possible reasons for the pain or to even allow me to finish a sentence or thought, I am going to discharge him. He is advised to follow-up in primary care and ENT if he has any further concerns. Departure - Departure Disposition: 01 Home, Self Care Clinical Impression: Acute ear pain Qualifiers: Laterality: bilateral Qualified Code(s): H92.03 - Otalgia, bilateral Tinnitus Qualifiers: Laterality: bilateral Qualified Code(s): H93.13 - Tinnitus, bilateral Condition: Stable Instructions: Tinnitus Comments: Your ear exam is normal with the exception of some tenderness of the fronts of The entrances to both your canals. The cause of this is not clear, as your ears both otherwise are completely normal. Please follow-up in primary care or with an ear nose throat specialist for further concerns. Please take ibuprofen as needed and consider getting help with your drug abuse.
[2021-12-25 04:34] VITALS: BP 155/88
== END 2021-12-25 04:32 | disposition home or self-care (01) ==
LOC: ED 03:53
DX: H92.03 Otalgia, bilateral (principal); H93.13 Tinnitus, bilateral
CPT/HCPCS: 99282; A9270

== ENCOUNTER 2021-12-27 02:31 | Outpatient (CLI) | payer MEDICAID | END 2021-12-27 02:32 | disposition critical access hospital (66) | LOC: EMS 02:31 | DX: R44.0 Auditory hallucinations (principal); R44.8 Other symptoms and signs involving general sensations and perceptions; R45.1 Restlessness and agitation; Z78.1 Physical restraint status | CPT/HCPCS: A0425; A0429; A0999 ==

== ENCOUNTER 2021-12-27 03:02 | Emergency (ER) | payer MEDICAID ==
[2021-12-27] MEDS ORDERED: MIDAZOLAM 10 MG/5 ML UDC PO STA ×2 (04:15→04:57)
--- NOTE | 2021-12-27 04:19 | ED Physician Documentation ---
History of Present Illness - Stated complaint Stated Complaint: MHE - Chief complaint Chief Complaint: MHE - History obtained from History obtained from: Patient, EMS - Additonal information Additional information: 46-year-old man with history of methamphetamine abuse presents with active meth intoxication and complaint that he is "hearing voices and I am not sure I am going to do". Patient denies SI or HI. "I want to sleep". Further history limited by patient intoxication Review of Systems Unable to obtain: Intoxicated PD PAST MEDICAL HISTORY - Past Medical History Past Medical History: Yes Cardiovascular: Hypertension Respiratory: None Neuro: None Endocrine/Autoimmune: None GI: None : Other HEENT: None Psych: Depression, Anxiety, Bipolar disorder, Panic attacks Musculoskeletal: None Derm: Other - Past Surgical History Past Surgical History: Yes Ortho: Other - Present Medications Home Medications: Ambulatory Orders Medication Instructions Recorded Confirmed lisinopriL [Lisinopril] 10 mg PO DAILY 01/03/16 12/01/16 Aripiprazole [Abilify] 20 mg PO DAILY 02/17/16 12/01/16 Sertraline HCl [Zoloft] 100 mg PO DAILY 02/17/16 12/01/16 clonazePAM [Clonazepam] 1 mg PO BID 02/17/16 12/01/16 - Allergies Allergies/Adverse Reactions: Allergies Allergy/AdvReac Type Severity Reaction Status Date / Time No Known Drug Allergies Allergy Verified 12/27/21 03:17 - Social History Does the pt smoke?: No Smoking Status: Never smoker Does the pt drink ETOH?: No Does the pt have substance abuse?: Yes Substance Use and Type: Meth - Immunizations Immunizations are current?: Yes Immunizations: TDAP current <10years - POLST Patient has POLST: No PD ED PE NORMAL - Vitals Vital signs reviewed: Yes - General General: Well developed/nourished, Other (Intoxicated with methamphetamine) - HEENT HEENT: Atraumatic, PERRL, EOMI - Neck Neck: Supple, no meningeal sign - Cardiac Cardiac: RRR, Other (Heart murmur present (patient states he has had since )) - Respiratory Respiratory: No respiratory distress, Clear bilaterally - Abdomen Abdomen: Non tender, Non distended - Derm Derm: Normal color, Warm and dry - Extremities Extremities: No deformity - Neuro Neuro: No motor deficit, No sensory deficit - Psych Psych: Other (Initially agitated, acutely intoxicated with meth. Calmed after speaking with me and undergoing physical exam.) Results - Vitals Vitals: Vital Signs - 24 hr 12/27/21 12/27/21 12/27/21 03:11 03:17 05:28 Temperature 36.8 C Heart Rate 90 74 Respiratory 16 15 16 Rate Blood Pressure 151/93 H 127/81 H O2 Saturation 96 95 Oxygen O2 Source Room air - EKG (time done) 0519 Rate: Rate (enter#) (79) Rhythm: NSR Waves: Normal Intervals: Normal AL, Prolonged QT (450) QRS: Normal Ischemia: Normal ST segments Computer interpretation: Agree with computer - Labs Labs: Laboratory Tests 12/27/21 12/27/21 12/27/21 05:17 05:17 05:17 WBC 9.3 RBC 4.76 Hgb 13.9 L Hct 39.0 L MCV 81.9 MCH 29.2 MCHC 35.6 RDW 12.0 Plt Count 281 MPV 10.2 Neut # (Auto) 6.5 Lymph # (Auto) 1.8 Castro # (Auto) 0.6 Eos # (Auto) 0.4 Baso # (Auto) 0.1 Absolute Nucleated RBC 0.00 Nucleated RBC % 0.0 Sodium 135 Potassium 3.1 L Chloride 101 Carbon Dioxide 27 Anion Gap 7.0 BUN 12 Creatinine 0.8 Estimated GFR (MDRD) 105 Glucose 122 H Calcium 8.6 Total Bilirubin 1.4 H AST 14 ALT 16 Alkaline Phosphatase 81 Total Protein 6.4 L Albumin 3.6 Globulin 2.8 Albumin/Globulin Ratio 1.3 Lipase 29 TSH 0.95 Salicylates < 6.0 Acetaminophen < 10 L Ethyl Alcohol < 5.0 PD MEDICAL DECISION MAKING - ED course ED course: 46-year-old man presents acutely intoxicated with methamphetamine, stating that he is hearing voices. While waiting to see the physician he became mildly agitated, requesting to be placed in restraints. Upon my interview he was agreeable to oral Versed for anxiolysis and as a sleep aid. Patient is now resting calmly and cooperative. We will continue to monitor for sobriety. Note that patient's father arrived and is at the bedside. Patient states he had some relief with oral versed but now is feeling anxious again and experiencing a ringing in his ears that causes him to bat at them. He is requesting more medication to alleviate his symptoms and help him rest. offered additional dose of versed and haldol and the patient accepted. Patient resting comfortably at 7am shift change. Patient endorsed to incoming daytime ED MD Dr. Whitmore awaiting social work evaluation. Departure - Departure Clinical Impression: Methamphetamine abuse
[2021-12-27] MEDS ORDERED: HALOPERIDOL 5 MG/ML VIAL IM STA (04:58)
[2021-12-27 05:22] LABS: BASOPHILS # (AUTO) 0.1 10^3/uL (0.0-0.1); BASOPHILS % (AUTO) 0.8 %; EOSINOPHILS # (AUTO) 0.4 10^3/uL (0.0-0.7); EOSINOPHILS % (AUTO) 3.8 %; HGB - HEMOGLOBIN 13.9 g/dL (14.0-18.0); LYMPHOCYTES # (AUTO) 1.8 10^3/uL (1.5-3.5); LYMPHOCYTES % (AUTO) 18.9 %; MEAN CORPUSCULAR HEMOGLOBIN 29.2 pg (27.0-31.0); MEAN CORPUSCULAR HGB CONC 35.6 g/dL (32.0-36.0); MEAN CORPUSCULAR VOLUME 81.9 fL (80.0-94.0); MEAN PLATELET VOLUME 10.2 fL (7.4-11.4); MONOCYTES # (AUTO) 0.6 10^3/uL (0.0-1.0); MONOCYTES % (AUTO) 6.3 %; NEUTROPHILS # (AUTO) 6.5 10^3/uL (1.5-6.6); NEUTROPHILS % (AUTO) 69.9 %; PLT - PLATELET COUNT 281 10^3/uL (130-450); RED BLOOD COUNT 4.76 10^6/uL (4.70-6.10); WHITE BLOOD COUNT 9.3 x10^3/uL (4.8-10.8)
[2021-12-27 05:36] LABS: ACETAMINOPHEN < 10 ug/mL (10-30); ALBUMIN 3.6 g/dL (3.2-5.5); ALBUMIN/GLOBULIN RATIO 1.3 (1.0-2.2); ALKALINE PHOSPHATASE 81 IU/L (42-121); ALT ALANINE AMINOTRANSFERASE 16 IU/L (10-60); AST ASPARTATE AMINOTRANSFERASE 14 IU/L (10-42); BILIRUBIN,TOTAL 1.4 mg/dL (0.2-1.0); BUN - BLOOD UREA NITROGEN 12 mg/dL (6-20); CALCIUM 8.6 mg/dL (8.5-10.3); CARBON DIOXIDE - CO2 27 mmol/L (21-32); CHLORIDE 101 mmol/L (101-111); CREATININE 0.8 mg/dL (0.6-1.2); ETOH - ETHANOL < 5.0 mg/dL; GFR - MDRD 105 (>89); GLUCOSE 122 mg/dL (70-100); LIPASE 29 U/L (22-51); POTASSIUM 3.1 mmol/L (3.5-5.0); SALICYLATE < 6.0 mg/dL; SODIUM 135 mmol/L (135-145); TOTAL PROTEIN 6.4 g/dL (6.7-8.2)
--- OUTSIDE RECORDS SUMMARY | 2021-12-27 05:48 | EXTERNAL MEDICAL SUMMARY RPT | Continuity of Care Document ---
:1975 Author Organization [facility] Address [address] [place] [address] Phone Allergies No information. Encounters No information. Functional Status No information. Immunizations No information. Medications No information. Problems No information. Procedures No information. Results/Labs test date author facility value unit interpret ation Result panel 1 (unknown) (no (unknown) (unknown) (no value) (units (unk nown) date) unknown) (unknown) (no (unknown) (unknown) <Electronically (units (unknown) date) signed by Aaron unknown) Yogesh De Paz> (unknown) (no (unknown) (unknown) *If you do not (units (unknown) date) have a primary care unknown) provider please contact the [facility] (unknown) (no (unknown) (unknown) *Please continue (units (unknown) date) to take your unknown) regular medications as directed. (unknown) (no (unknown) (unknown) *Please follow up (units (unknown) date) with your primary unknown) care provider in 2-3 days, call for an (unknown) (no (unknown) (unknown) *Return to (units (unk nown) date) Emergency unknown) Department if you should have any new, worsening or (unknown) (no (unknown) (unknown) *What to do: (units (u nknown) date) unknown) (unknown) (no (unknown) (unknown) *You have been (units (unknown) date) diagnosed with unknown) [acute left otitis media] (unknown) (no (unknown) (unknown) [id number] (units (unkno wn) date) unknown) (unknown) (no (unknown) (unknown) 12/25/21 (units (unkno wn) date) unknown) (unknown) (no (unknown) (unknown) 12/26/21 0649 (units ( unknown) date) unknown) (unknown) (no (unknown) (unknown) 1 tab PO Q12H Qty: (units (unknown) date) 20 0RF unknown) (unknown) (no (unknown) (unknown) 12 point review of (units (unknown) date) systems is negative unknown) except for those stated above (unknown) (no (unknown) (unknown) 18:11 12/25/21 (units (unknown) date) unknown) (unknown) (no (unknown) (unknown) 21:19 (units (unkno wn) date) unknown) (unknown) (no (unknown) (unknown) 46-year-old male (units (unknown) date) smoker with unknown) occasional use of methamphetamines presents with (unknown) (no (unknown) (unknown) Activity (units (unkno wn) date) Restrictions/Additi unknown) onal Instructions: (unknown) (no (unknown) (unknown) Acute otitis media (units (unknown) date) unknown) (unknown) (no (unknown) (unknown) Age/Sex: 46 / M (units (unknown) date) unknown) (unknown) (no (unknown) (unknown) Allergies (units (unkn own) date) unknown) (unknown) (no (unknown) (unknown) Allergy/AdvReac (units (unknown) date) Type Severity unknown) Reaction Status Date / Time (unknown) (no (unknown) (unknown) Amoxicillin/Clavul (units (unknown) date) anate Potassium unknown) (Amoxicillin/Clav 875/125 Mg) 1 tab PO NOW (unknown) (no (unknown) (unknown) BACK: Nontender (units (unknown) date) without deformity unknown) or crepitance. No flank tenderness. (unknown) (no (unknown) (unknown) Blood Pressure (units (unknown) date) 155/111 H 12/25/21 unknown) 18:11 (unknown) (no (unknown) (unknown) Blood Pressure (units (unknown) date) 155/111 H 165/84 H unknown) (unknown) (no (unknown) (unknown) CARDIOVASCULAR: (units (unknown) date) Denies chest pain, unknown) palpitations, orthopnea, edema, (unknown) (no (unknown) (unknown) CARDIOVASCULAR: (units (unknown) date) Regular rate and unknown) rhythm without murmurs, gallops, or rubs. (unknown) (no (unknown) (unknown) Chief complaint: (units (unknown) date) Toxicology Problem unknown) (unknown) (no (unknown) (unknown) Clinical (units (unkno wn) date) Impression: unknown) (unknown) (no (unknown) (unknown) Course (units (unkno wn) date) unknown) (unknown) (no (unknown) (unknown) : 1975 (units (unknown) date) Acct:[id number] unknown) (unknown) (no (unknown) (unknown) Date of Service: (units (unknown) date) 12/25/21 unknown) (unknown) (no (unknown) (unknown) Departure (units (unkn own) date) unknown) (unknown) (no (unknown) (unknown) Discharge Plan (units (unknown) date) unknown) (unknown) (no (unknown) (unknown) Discontinued (units (u nknown) date) Medications unknown) (unknown) (no (unknown) (unknown) Documented By: ADK (units (unknown) date) unknown) (unknown) (no (unknown) (unknown) Documented By: ANSON (units (unknown) date) unknown) (unknown) (no (unknown) (unknown) ENT: Nose without (units (unknown) date) bleeding, purulent unknown) drainage. Throat without erythema, (unknown) (no (unknown) (unknown) ER Physician: (units ( unknown) date) Aaron De Paz D.O. unknown) (unknown) (no (unknown) (unknown) EXTREMITIES: No (units (unknown) date) edema or joint unknown) tenderness. (unknown) (no (unknown) (unknown) EYES: Pupils equal (units (unknown) date) round and reactive. unknown) Extraocular motions intact. No scleral (unknown) (no (unknown) (unknown) Emergency Report (units (unknown) date) unknown) (unknown) (no (unknown) (unknown) Exam Narrative: (units (unknown) date) unknown) (unknown) (no (unknown) (unknown) Exam (units (unkno wn) date) unknown) (unknown) (no (unknown) (unknown) GASTROINTESTINAL: (units (unknown) date) Abdomen soft, unknown) non-tender, nondistended. (unknown) (no (unknown) (unknown) GASTROINTESTINAL: (units (unknown) date) Denies nausea, unknown) vomiting, abdominal pain, diarrhea, (unknown) (no (unknown) (unknown) GENERAL: Denies (units (unknown) date) chills, fatigue, unknown) malaise, fever, sweats. (unknown) (no (unknown) (unknown) GENERAL: [46] year (units (unknown) date) old patient appears unknown) stated age. Well-developed patient, in (unknown) (no (unknown) (unknown) : Denies (units (unk nown) date) dysuria, frequency, unknown) incontinence, hematuria, urinary retention. (unknown) (no (unknown) (unknown) General (units (unkno wn) date) unknown) (unknown) (no (unknown) (unknown) HEAD: Atraumatic. (units (unknown) date) Normocephalic. unknown) (unknown) (no (unknown) (unknown) HEENT: See HPI (units (unknown) date) unknown) (unknown) (no (unknown) (unknown) HPI - General (units ( unknown) date) Adult unknown) (unknown) (no (unknown) (unknown) HPI narrative: (units (unknown) date) unknown) (unknown) (no (unknown) (unknown) Rashaad Redd MD (units (unknown) date) [Physician] unknown) (unknown) (no (unknown) (unknown) History of Present (units (unknown) date) Illness unknown) (unknown) (no (unknown) (unknown) Hydrocodone (units (un known) date) Bitart/Acetaminophe unknown) n (Hydrocodone/Acet 5/325 Prepack) 1 bottle MISC (unknown) (no (unknown) (unknown) Hydrocodone (units (un known) date) Bitart/Acetaminophe unknown) n (Hydrocodone/Acet 5/325 Tablet) 2 tab PO NOW (unknown) (no (unknown) (unknown) Initial Vital (units ( unknown) date) Signs unknown) (unknown) (no (unknown) (unknown) Initial Vital (units ( unknown) date) Signs: unknown) (unknown) (no (unknown) (unknown) Instructions: (units ( unknown) date) Middle Ear unknown) Infection (unknown) (no (unknown) (unknown) [facility] (units (unknown) date) [address] unknown) [place] [address] (unknown) (no (unknown) (unknown) Last Admin: (units (un known) date) 12/25/21 20:32 unknown) Dose: 2 tab (unknown) (no (unknown) (unknown) Last Admin: (units (un known) date) 12/25/21 22:48 unknown) Dose: 1 tab (unknown) (no (unknown) (unknown) Last Admin: (units (un known) date) 12/25/21 23:18 unknown) Dose: 1 bottle (unknown) (no (unknown) (unknown) MDM Narrative (units ( unknown) date) unknown) (unknown) (no (unknown) (unknown) MUSCULOSKELETAL: (units (unknown) date) denies weakness, unknown) joint pain, or bony pain (unknown) (no (unknown) (unknown) Medical Decision (units (unknown) date) Making unknown) (unknown) (no (unknown) (unknown) Medical decision (units (unknown) date) making narrative: unknown) (unknown) (no (unknown) (unknown) Medication (units (unk nown) date) Instructions unknown) Recorded (unknown) (no (unknown) (unknown) NECK: Trachea (units ( unknown) date) midline. Non tender unknown) (unknown) (no (unknown) (unknown) NEURO: AOx3. (units (u nknown) date) unknown) (unknown) (no (unknown) (unknown) NEUROLOGIC: Denies (units (unknown) date) weakness, headache, unknown) numbness, change in speech, confusion, (unknown) (no (unknown) (unknown) Narrative (units (unkn own) date) unknown) (unknown) (no (unknown) (unknown) Narrative: (units (unk nown) date) unknown) (unknown) (no (unknown) (unknown) New (units (unkno wn) date) unknown) (unknown) (no (unknown) (unknown) No Known Drug (units ( unknown) date) Allergies Allergy unknown) Verified 12/25/21 20:32 (unknown) (no (unknown) (unknown) ONE (units (unkno wn) date) unknown) (unknown) (no (unknown) (unknown) Ordered: (units (unkno wn) date) unknown) (unknown) (no (unknown) (unknown) Orders (units (unkno wn) date) unknown) (unknown) (no (unknown) (unknown) Oxygen Delivery (units (unknown) date) Method Room Air unknown) (unknown) (no (unknown) (unknown) PSYCHIATRIC: No (units (unknown) date) concerning unknown) psychosocial issues. (unknown) (no (unknown) (unknown) Patient (units (unkno wn) date) Disposition: Home unknown) (unknown) (no (unknown) (unknown) Patient with left (units (unknown) date) ear pain and exam unknown) consistent with otitis media in the absence (unknown) (no (unknown) (unknown) Patient: (units (unkno wn) date) Vaughn Rosenbaum unknown) MR#: [id number] (unknown) (no (unknown) (unknown) Prescriptions: (units (unknown) date) unknown) (unknown) (no (unknown) (unknown) Previous Rx's (units ( unknown) date) unknown) (unknown) (no (unknown) (unknown) Pulse Oximetry 95 (units (unknown) date) unknown) (unknown) (no (unknown) (unknown) Pulse Rate 98 H (units (unknown) date) 12/25/21 18:11 unknown) (unknown) (no (unknown) (unknown) Pulse Rate 98 H (units (unknown) date) 104 H unknown) (unknown) (no (unknown) (unknown) RESPIRATORY: Clear (units (unknown) date) to auscultation. unknown) Breath sounds equal bilaterally. No wheezes, (unknown) (no (unknown) (unknown) RESPIRATORY: (units (u nknown) date) Denies dyspnea, unknown) cough, wheezing, hemoptysis, sputum. (unknown) (no (unknown) (unknown) Referrals: (units (unk nown) date) unknown) (unknown) (no (unknown) (unknown) Related Data (units (u nknown) date) unknown) (unknown) (no (unknown) (unknown) Resource line at (units (unknown) date) [phone]. They unknown) will ask some questions about your medical (unknown) (no (unknown) (unknown) Respiratory Rate (units (unknown) date) 16 12/25/21 18:11 unknown) (unknown) (no (unknown) (unknown) Respiratory Rate (units (unknown) date) 16 20 unknown) (unknown) (no (unknown) (unknown) Review of Systems (units (unknown) date) unknown) (unknown) (no (unknown) (unknown) SEEINSTR ONE (units (u nknown) date) unknown) (unknown) (no (unknown) (unknown) SKIN: Denies rash, (units (unknown) date) skin lesions, or unknown) other (unknown) (no (unknown) (unknown) SKIN: No rash or (units (unknown) date) erythema of visible unknown) areas (unknown) (no (unknown) (unknown) Signed By: (units (unk nown) date) unknown) (unknown) (no (unknown) (unknown) Stated complaint: (units (unknown) date) Pain in both ears unknown) (unknown) (no (unknown) (unknown) Stop: 12/25/21 (units (unknown) date) 20:26 unknown) (unknown) (no (unknown) (unknown) Stop: 12/25/21 (units (unknown) date) 22:45 unknown) (unknown) (no (unknown) (unknown) Stop: 12/25/21 (units (unknown) date) 23:08 unknown) (unknown) (no (unknown) (unknown) Temperature 97.9 F (units (unknown) date) 12/25/21 18:11 unknown) (unknown) (no (unknown) (unknown) Temperature 97.9 F (units (unknown) date) unknown) (unknown) (no (unknown) (unknown) Time Seen by (units (u nknown) date) Provider: 12/25/21 unknown) 21:48 (unknown) (no (unknown) (unknown) Visit Report (units (u nknown) date) Forms: Patient unknown) Portal/API (unknown) (no (unknown) (unknown) Vital Signs - 8 hr (units (unknown) date) unknown) (unknown) (no (unknown) (unknown) Vital Signs (units (un known) date) unknown) (unknown) (no (unknown) (unknown) Vital signs: (units (u nknown) date) unknown) (unknown) (no (unknown) (unknown) [ ] New medication (units (unknown) date) written as a paper unknown) prescription (unknown) (no (unknown) (unknown) [ ] No new (units (unk nown) date) medications given unknown) (unknown) (no (unknown) (unknown) [x ] New (units (unkno wn) date) medication unknown) prescriptions sent to your pharmacy: [ [facility] (unknown) (no (unknown) (unknown) after extensive (units (unknown) date) discussion patient unknown) and father understand and are in agreement (unknown) (no (unknown) (unknown) amoxicillin 875 (units (unknown) date) mg-potassium 1 tab unknown) PO Q12H #20 tabs 12/25/21 (unknown) (no (unknown) (unknown) amoxicillin-pot (units (unknown) date) clavulanate 875-125 unknown) mg tablet (unknown) (no (unknown) (unknown) appointment. Let (units (unknown) date) them know you were unknown) seen in the Emergency Department and that we (unknown) (no (unknown) (unknown) ask that you be (units (unknown) date) seen in follow up. unknown) We will electronically transmit a record of (unknown) (no (unknown) (unknown) chills. Denies any (units (unknown) date) drainage, trauma, unknown) recent flights or diving. He is otherwise (unknown) (no (unknown) (unknown) clavulanate 125 mg (units (unknown) date) tablet unknown) (unknown) (no (unknown) (unknown) concerning (units (unk nown) date) symptoms, such as unknown) [fever greater than 101 F, shaking chills, (unknown) (no (unknown) (unknown) constipation, (units ( unknown) date) melena. unknown) (unknown) (no (unknown) (unknown) erythematous, (units ( unknown) date) bulging and unknown) opacified with loss of landmarks, right tympanic (unknown) (no (unknown) (unknown) his father and a (units (unknown) date) chief complaint of unknown) pain in bilateral ears, left greater than (unknown) (no (unknown) (unknown) history and help (units (unknown) date) get you set up with unknown) a doctor in the community. (unknown) (no (unknown) (unknown) icterus. No (units (un known) date) injection or unknown) drainage. (unknown) (no (unknown) (unknown) in [place]] (units (un known) date) unknown) (unknown) (no (unknown) (unknown) membrane is (units (un known) date) obscured by unknown) cerumen. There is no drainage or exudate noted (unknown) (no (unknown) (unknown) mild distress. (units (unknown) date) Obviously unknown) uncomfortable, rubbing his left ear (unknown) (no (unknown) (unknown) of any rupture or (units (unknown) date) perforation. unknown) Patient is quite bothered by his symptoms and is (unknown) (no (unknown) (unknown) rales, or rhonchi. (units (unknown) date) unknown) (unknown) (no (unknown) (unknown) requesting imaging (units (unknown) date) though at this time unknown) there is no indication for this and (unknown) (no (unknown) (unknown) right. He states (units (unknown) date) that he has been unknown) having pain and fullness with a popping (unknown) (no (unknown) (unknown) seizures, (units (unkn own) date) incoordination. unknown) (unknown) (no (unknown) (unknown) sensation in his (units (unknown) date) ears for the past unknown) few days. He denies any runny nose or sore (unknown) (no (unknown) (unknown) their apparent (units (unknown) date) satisfaction unknown) (unknown) (no (unknown) (unknown) throat. He denies (units (unknown) date) any chest pain or unknown) shortness of breath and has had no fever or (unknown) (no (unknown) (unknown) today's note if (units (unknown) date) your PCP is in our unknown) system (unknown) (no (unknown) (unknown) tonsillar (units (unkn own) date) hypertrophy or unknown) exudate. Airway patent. Left tympanic membrane is (unknown) (no (unknown) (unknown) well and free of (units (unknown) date) complaint unknown) (unknown) (no (unknown) (unknown) with diagnosis and (units (unknown) date) plan. Return unknown) precautions discussed and questions answered to (unknown) (no (unknown) (unknown) worsening pain, (units (unknown) date) persistent vomiting unknown) or other bothersome symptoms] Social History No information. Vital Signs No information.
[2021-12-27] MEDS ORDERED: POTASSIUM CHLORIDE 20 MEQ TABLET PO STA (11:46)
[2021-12-27 12:04] LABS: MUDS CUTOFF CONCENTRATIONS CUTOFF CONC BELOW:
[2021-12-27 12:09] LABS: BILIRUBIN,URINE NEGATIVE (NEGATIVE); GLUCOSE, URINE (UA) NEGATIVE (NEGATIVE); KETONES,URINE (UA) TRACE mg/dL (NEGATIVE); LEUKOCYTE ESTERASE, URINE NEGATIVE (NEGATIVE); NITRITE,URINE NEGATIVE (NEGATIVE); OCCULT BLOOD,URINE NEGATIVE (NEGATIVE); PH,URINE 5.5 PH (5.0-7.5); PROTEIN,URINE NEGATIVE (NEGATIVE); UROBILINOGEN,URINE 0.2 (NORMAL) E.U./dL (NORMAL)
[2021-12-27 12:10] LABS: CLARITY,URINE CLEAR (CLEAR)
[2021-12-27 12:19] LABS: AMPHETAMINE SCREEN,URINE POSITIVE (NEGATIVE); BARBITURATE SCREEN,UR NEGATIVE (NEGATIVE); BENZODIAZEPINES SCREEN, URINE NEGATIVE (NEGATIVE); COCAINE SCREEN URINE NEGATIVE (NEGATIVE); METHADONE SCREEN, URINE NEGATIVE (NEGATIVE); METHAMPHETAMINES SCREEN, URINE POSITIVE (NEGATIVE); OPIATE SCREEN, URINE POSITIVE (NEGATIVE); OXYCODONE SCREEN, URINE POSITIVE (NEGATIVE); PROPOXYPHENE SCREEN, URINE NEGATIVE (NEGATIVE); THC CANNABINOID SCREEN, URINE NEGATIVE (NEGATIVE); TRICYCLIC ANTIDEPRESSANT,URINE NEGATIVE (NEGATIVE)
--- NOTE | 2021-12-27 13:14 | ED Physician Documentation ---
ED Addendum - Addendum Addendum: 12/27/21 13:25 Pt signed out to me by Dr. Fajardo. Patient has requested inpatient treatment for auditory hallucinations and his substance abuse. He has been seen by social work and has been accepted by [facility]. Repeat potassium is improved and he has been given p.o. potassium. He is otherwise medically stable for transfer. Departure - Departure Disposition: [facility]/Unit DC/Xfer Clinical Impression: Methamphetamine abuse, Auditory hallucinations Condition: Stable Discharge Date/Time: 12/27/21 15:27
[2021-12-27] MEDS ORDERED: OLANZapine ODT 5 MG TABLET TL ONE (14:09)
[2021-12-27 15:29] VITALS: BP 127/84
== END 2021-12-27 15:27 ==
LOC: EDUNIT# → ED 03:02
DX: F15.129 Other stimulant abuse with intoxication, unspecified (principal); R44.0 Auditory hallucinations; Z20.822 Contact with and (suspected) exposure to COVID-19
CPT/HCPCS: 36415; 80053; 80306; 80307; 80320; 80329; 81003; 83690; 84132; 84443; 85025; 87635; 93005; 96372; 99281; 99285; A9270; 81001; 87086

== ENCOUNTER 2022-01-04 14:28 | Outpatient (CLI) | payer MEDICAID ==
[2022-01-04 20:13] LABS: BASOPHILS # (AUTO) 0.1 10^3/uL (0.0-0.1); EOSINOPHILS # (AUTO) 0.2 10^3/uL (0.0-0.7); EOSINOPHILS % (AUTO) 2.1 %; HCT - HEMATOCRIT 42.4 % (42.0-52.0); LYMPHOCYTES # (AUTO) 2.2 10^3/uL (1.5-3.5); MEAN CORPUSCULAR HEMOGLOBIN 28.3 pg (27.0-31.0); MEAN CORPUSCULAR VOLUME 85.7 fL (80.0-94.0); MONOCYTES # (AUTO) 0.5 10^3/uL (0.0-1.0); MONOCYTES % (AUTO) 5.2 %; NEUTROPHILS # (AUTO) 7.3 10^3/uL (1.5-6.6); NEUTROPHILS % (AUTO) 70.2 %; PLT - PLATELET COUNT 272 10^3/uL (130-450); RED BLOOD COUNT 4.95 10^6/uL (4.70-6.10); RED CELL DISTRIBUTION WIDTH 12.8 % (12.0-15.0); WHITE BLOOD COUNT 10.4 x10^3/uL (4.8-10.8)
[2022-01-04 20:22] LABS: ALBUMIN 3.9 g/dL (3.2-5.5); ALBUMIN/GLOBULIN RATIO 1.4 (1.0-2.2); BILIRUBIN,TOTAL 0.4 mg/dL (0.2-1.0); CALCIUM 9.1 mg/dL (8.5-10.3); CREATININE 0.9 mg/dL (0.6-1.2); POTASSIUM 3.6 mmol/L (3.5-5.0); TOTAL PROTEIN 6.7 g/dL (6.7-8.2)
[2022-01-04 20:39] LABS: THYROID STIMULATING HORMONE 2.98 uIU/mL (0.34-5.60)
[2022-01-04 20:50] LABS: FOLATE 14.71 ng/mL (5.90 - >24.8)
== END 2022-01-04 14:29 | disposition home or self-care (01) ==
LOC: LAB.S 14:28
PROVIDERS: ATTEND Nurse Practitioner Psychiatric/Mental Health
DX: F41.1 Generalized anxiety disorder (principal)
CPT/HCPCS: 36415; 80050; 81599; 82306; 82607; 82746

== ENCOUNTER 2022-01-05 16:06 | Emergency (ER) | payer MEDICAID ==
[2022-01-05 16:40] VITALS: BP 148/100
--- NOTE | 2022-01-05 18:10 | ED Physician Documentation ---
History of Present Illness - Stated complaint Stated Complaint: BILAT EAR PX - Chief complaint Chief Complaint: MHE - History obtained from History obtained from: Patient - History of Present Illness Timing: Chronic - Additonal information Additional information: 46-year-old male with history of amphetamine abuse presents for evaluation of bilateral ear pain as well as worsening auditory hallucinations. History obtained mostly from father as patient is only complaining of bilateral ear pain and ringing in his ears. Patient's father states that the patient has said he feels the voices talking in his ear and they become more aggressive lately, telling him to kill himself. Patient is evasive when asked if he is taking any substances. Patient was here 1 week ago for exact same complaint, he spent a week at [facility]. Patient denies suicidal or homicidal ideations. Review of Systems Ten Systems: 10 systems reviewed and negative Constitutional: denies: Fever, Chills, Myalgias Ears: reports: Ear pain, Tinnitus/ringing. denies: Loss of hearing Throat: denies: Dental pain / toothache, Oral lesions / sores, Sore throat Cardiac: denies: Chest pain / pressure, Palpitations, Calf pain Psychiatric: reports: Hallucinations. denies: Depressed, Suicidal, Homicidal PD PAST MEDICAL HISTORY - Past Medical History Past Medical History: Yes Cardiovascular: Hypertension Respiratory: None Neuro: None Endocrine/Autoimmune: None GI: None : Other HEENT: None Psych: Depression, Anxiety, Bipolar disorder, Panic attacks Musculoskeletal: None Derm: Other - Past Surgical History Past Surgical History: Yes Ortho: Other - Present Medications Home Medications: Ambulatory Orders Medication Instructions Recorded Confirmed lisinopriL [Lisinopril] 10 mg PO DAILY 01/03/16 12/01/16 Amox/Clav 875/125 [Augmentin 1 tablet PO Q12H 01/05/22 01/05/22 875/125 Tab] OLANZapine [Zyprexa] 5 mg PO BID 01/05/22 01/05/22 buPROPion HCL [Bupropion Xl] 150 mg PO DAILY 01/05/22 01/05/22 clonazePAM [Clonazepam] 0.5 mg PO BID PRN 01/05/22 01/05/22 hydrOXYzine pamoate [Hydroxyzine 50 mg ORAL Q4HR PRN 01/05/22 01/05/22 Pamoate] traZODone [Desyrel] 50 mg PO HS PRN 01/05/22 01/05/22 - Allergies Allergies/Adverse Reactions: Allergies Allergy/AdvReac Type Severity Reaction Status Date / Time No Known Drug Allergies Allergy Verified 01/05/22 16:38 - Social History Does the pt smoke?: No Smoking Status: Never smoker Does the pt drink ETOH?: No Does the pt have substance abuse?: Yes - Immunizations Immunizations are current?: Yes Immunizations: TDAP current <10years - POLST Patient has POLST: No PD ED PE NORMAL - Vitals Vital signs reviewed: Yes - General General: Alert and oriented X 3, Well developed/nourished, Other (agitated) - HEENT HEENT: Atraumatic, PERRL, EOMI, Moist mucous membranes, Other (scratches in external ear canal, TM normal bilaterally) - Cardiac Cardiac: RRR, No murmur, Strong equal pulses - Respiratory Respiratory: No respiratory distress, Clear bilaterally - Abdomen Abdomen: Soft, Non tender, Non distended - Back Back: No CVA TTP, No spinal TTP - Derm Derm: Normal color, Warm and dry, No rash - Extremities Extremities: No deformity, No tenderness to palpate, Normal ROM s pain - Neuro Neuro: Alert and oriented X 3, community service patrol officer 2-12 intact, No motor deficit, No sensory deficit, Normal speech - Psych Psych: Other (Flat affect, poor eye contact.) Results - Vitals Vitals: Vital Signs - 24 hr 01/05/22 16:38 Temperature 36.5 C Heart Rate 116 H Respiratory 18 Rate Blood Pressure 148/100 H O2 Saturation 98 Oxygen O2 Source Room air - Labs Labs: Laboratory Tests 01/05/22 18:22 WBC 13.5 H RBC 5.24 Hgb 15.1 Hct 43.9 MCV 83.8 MCH 28.8 MCHC 34.4 RDW 12.6 Plt Count 306 MPV 11.0 Neut # (Auto) 9.5 H Lymph # (Auto) 2.6 [place] # (Auto) 0.8 Eos # (Auto) 0.4 Baso # (Auto) 0.1 Absolute Nucleated RBC 0.00 Nucleated RBC % 0.0 PD MEDICAL DECISION MAKING - ED course Complexity details: re-evaluated patient ED course: Patient presenting primarily for bilateral ear ringing and bilateral ear pain. On review of the patient's chart he is presented multiple times for this complaint. 1 week ago he complained of the same as well as worsening auditory hallucinations. He was found to have both opiates and amphetamines in his urine drug screen. He spent a week at [facility]. Patient will not say whether or not he did drugs prior to arrival. He is poorly cooperative with staff. Father states that they are primarily here for medicine changes. We will order a telepsych consult.At this time patient is denying suicidal or homicidal ideations, only worsening hallucinations 1835: When asked to provide urine sample patient said he wouldn't give urine and walked out of the ED Departure - Departure Disposition: ED [place] Clinical Impression: Psychiatric symptoms, Eloped from emergency department, Ear ringing, Ear pain Condition: Stable
[2022-01-05 18:29] LABS: BASOPHILS # (AUTO) 0.1 10^3/uL (0.0-0.1); EOSINOPHILS # (AUTO) 0.4 10^3/uL (0.0-0.7); EOSINOPHILS % (AUTO) 2.8 %; HCT - HEMATOCRIT 43.9 % (42.0-52.0); HGB - HEMOGLOBIN 15.1 g/dL (14.0-18.0); LYMPHOCYTES # (AUTO) 2.6 10^3/uL (1.5-3.5); LYMPHOCYTES % (AUTO) 19.4 %; MEAN CORPUSCULAR HEMOGLOBIN 28.8 pg (27.0-31.0); MEAN CORPUSCULAR HGB CONC 34.4 g/dL (32.0-36.0); MEAN CORPUSCULAR VOLUME 83.8 fL (80.0-94.0); MONOCYTES # (AUTO) 0.8 10^3/uL (0.0-1.0); MONOCYTES % (AUTO) 6.1 %; NEUTROPHILS # (AUTO) 9.5 10^3/uL (1.5-6.6); NEUTROPHILS % (AUTO) 70.3 %; PLT - PLATELET COUNT 306 10^3/uL (130-450); RED BLOOD COUNT 5.24 10^6/uL (4.70-6.10); RED CELL DISTRIBUTION WIDTH 12.6 % (12.0-15.0); WHITE BLOOD COUNT 13.5 x10^3/uL (4.8-10.8)
[2022-01-05 18:43] LABS: ACETAMINOPHEN < 10 ug/mL (10-30); ALBUMIN 4.2 g/dL (3.2-5.5); ALBUMIN/GLOBULIN RATIO 1.4 (1.0-2.2); ALKALINE PHOSPHATASE 98 IU/L (42-121); ALT ALANINE AMINOTRANSFERASE 22 IU/L (10-60); AST ASPARTATE AMINOTRANSFERASE 21 IU/L (10-42); BILIRUBIN,TOTAL 0.7 mg/dL (0.2-1.0); BUN - BLOOD UREA NITROGEN 17 mg/dL (6-20); CALCIUM 9.1 mg/dL (8.5-10.3); CARBON DIOXIDE - CO2 27 mmol/L (21-32); CHLORIDE 102 mmol/L (101-111); CREATININE 0.9 mg/dL (0.6-1.2); ETOH - ETHANOL < 5.0 mg/dL; GFR - MDRD 91 (>89); GLUCOSE 189 mg/dL (70-100); POTASSIUM 3.8 mmol/L (3.5-5.0); SALICYLATE < 6.0 mg/dL; SODIUM 138 mmol/L (135-145); TOTAL PROTEIN 7.1 g/dL (6.7-8.2)
== END 2022-01-05 18:37 | disposition left against medical advice (07) ==
LOC: ED 16:06
DX: F99 Mental disorder, not otherwise specified (principal); H92.03 Otalgia, bilateral; F31.9 Bipolar disorder, unspecified; F40.9 Phobic anxiety disorder, unspecified; F15.10 Other stimulant abuse, uncomplicated; H93.13 Tinnitus, bilateral; Z53.29 Procedure and treatment not carried out because of patient's decision for other reasons
CPT/HCPCS: 36415; 80053; 80307; 80320; 80329; 85025; 99283

== ENCOUNTER 2022-01-07 16:59 | Emergency (ER) | payer MEDICAID ==
[2022-01-07 17:28] VITALS: BP 131/108
--- NOTE | 2022-01-07 17:53 | ED Physician Documentation ---
PD HPI MHE - Stated complaint Stated Complaint: BILAT EAR PX - Chief complaint Chief Complaint: MHE - History obtained from History obtained from: Patient, Family - Additional information Additional information: The patient is brought to the emergency department by his father for chief complaint of bilateral ear pain and hearing voices. The patient has been seen a number of times recently in our emergency department, sometimes for similar issues. He is known to use methamphetamines regularly, but has a persistent delusion that there is something growing in his ear that is causing the voices and the pain. He has been examined multiple times, both by myself and by other colleagues here in the ED for this and has had a normal exam every time. The patient was recently admitted to an inpatient psychiatric facility, where he stayed for about a week and was placed on multiple medications, including Zyprexa, Wellbutrin, Seroquel, and clonazepam. The patient states his symptoms never really went away, despite the medications. He subsequently presented here and was offered social work evaluation, but has chafed at having to provide a urine drug screen and last time he was here, left the department without completing treatment or evaluation because of this. The patient's father is with him and asks if there is any possibility that there could be "a stereo in his ear that somebody implanted". He states that they were supposed to go to have an intake for substance abuse clinic this afternoon but that "the patient was sleeping and I did not want to wake him up". Thus, they have come here to the emergency department. The father states that the patient is on a number of medications, which the patient does state that he has been taking, and the father is concerned that they will not have enough to get through to their next appointment. He is requesting some refills. No other complaints at this time. No suicidal or homicidal ideation. No violent behavior. Review of Systems Ten Systems: 10 systems reviewed and negative Constitutional: reports: Reviewed and negative Eyes: reports: Reviewed and negative Ears: reports: Ear pain Nose: reports: Reviewed and negative Throat: reports: Reviewed and negative Cardiac: reports: Reviewed and negative Respiratory: reports: Reviewed and negative GI: reports: Reviewed and negative : reports: Reviewed and negative Skin: reports: Reviewed and negative Musculoskeletal: reports: Reviewed and negative Neurologic: reports: Reviewed and negative Psychiatric: reports: Hallucinations Endocrine: reports: Reviewed and negative Immunocompromised: reports: Reviewed and negative PD PAST MEDICAL HISTORY - Past Medical History Past Medical History: Yes Cardiovascular: Hypertension Respiratory: None Neuro: None Endocrine/Autoimmune: None GI: None : Other HEENT: None Psych: Depression, Anxiety, Bipolar disorder, Panic attacks Musculoskeletal: None Derm: Other - Past Surgical History Past Surgical History: Yes Ortho: Other - Present Medications Home Medications: Ambulatory Orders Medication Instructions Recorded Confirmed lisinopriL [Lisinopril] 10 mg PO DAILY 01/03/16 12/01/16 Amox/Clav 875/125 [Augmentin 1 tablet PO Q12H 01/05/22 01/05/22 875/125 Tab] OLANZapine [Zyprexa] 5 mg PO BID 01/05/22 01/05/22 buPROPion HCL [Bupropion Xl] 150 mg PO DAILY 01/05/22 01/05/22 clonazePAM [Clonazepam] 0.5 mg PO BID PRN 01/05/22 01/05/22 hydrOXYzine pamoate [Hydroxyzine 50 mg ORAL Q4HR PRN 01/05/22 01/05/22 Pamoate] traZODone [Desyrel] 50 mg PO HS PRN 01/05/22 01/05/22 OLANZapine ODT [Zyprexa Odt] 5 mg TL BID #60 tablet 01/07/22 buPROPion [Wellbutrin Xl] 150 mg PO DAILY #30 tablet 01/07/22 clonazePAM [KlonoPIN] 0.5 mg PO BID PRN #20 tablet 01/07/22 hydrOXYzine HCL [Hydroxyzine HCl] 50 mg PO BID #60 tablet 01/07/22 traZODone [Desyrel] 50 mg PO HS #30 tablet 01/07/22 - Allergies Allergies/Adverse Reactions: Allergies Allergy/AdvReac Type Severity Reaction Status Date / Time No Known Drug Allergies Allergy Verified 01/07/22 17:28 - Social History Does the pt smoke?: No Smoking Status: Never smoker Does the pt drink ETOH?: No Does the pt have substance abuse?: Yes - Immunizations Immunizations are current?: Yes Immunizations: TDAP current <10years - POLST Patient has POLST: No PD ED PE NORMAL - Vitals Vital signs reviewed: Yes - General General: No acute distress, Well developed/nourished, Other - HEENT HEENT: Atraumatic, PERRL, EOMI, Ears normal - Respiratory Respiratory: No respiratory distress - Derm Derm: Normal color, Warm and dry, No rash - Extremities Extremities: No deformity - Neuro Neuro: Other (The patient is alert and somewhat agitated. He is articulate, however. No gross deficits otherwise.) - Psych Psych: Other (The patient is mildly agitated and does not make eye contact. He does not display insight into his condition and seems convinced that he has something wrong with his ears themselves and that the voices are not hallucinations but an actual physical voice from something inside of his ear. ) Results - Vitals Vitals: Oxygen O2 Source Room air PD MEDICAL DECISION MAKING - ED course Complexity details: considered differential, d/w patient, d/w family ED course: I had a lengthy conversation with this patient and his father. The patient has been seen here multiple times for similar symptoms and has been very resistant to the idea of the methamphetamines having anything to do with his condition. He has been in previous visits untruthful about his methamphetamine use until the urine drug screen demonstrated the presence of this. The patient on this visit is more forthcoming about his methamphetamine use and states that "it did not help when I stayed sober anyway". Today, as my previous conversation with him on a prior visit, the patient is very defensive and when I try to discuss with him that there is nothing abnormal about his ears today and has not been on prior visits for the similar symptoms either, he gets upset and states that "you are just blowing me off and do not want to listen". While the patient was in the bathroom, I did discuss with the patient's father that it is not helpful to encourage the patient's delusions by lending legitimacy to the idea that someone could have implanted a stereo into the patient's ear, as the father is v penelope well aware that this is not the case. The father acknowledges that this is not helpful. I have also discussed with the father and patient that the most important thing would have been to go to his appointment this afternoon to get actual help with his substance abuse, as there is nothing further to be done for this condition in the emergency department. The patient has already gone to inpatient therapy and has been placed on a number of medications including Seroquel, Wellbutrin, Zyprexa and Clonazepam, and we will not be changing the medications in the emergency department today. I have given some refills that should hopefully tide the patient over until he can be seen by the mental health clinic as an outpatient. Departure - Departure Disposition: 01 Home, Self Care Clinical Impression: Methamphetamine abuse Psychosis Qualifiers: Psychosis type: unspecified psychosis type Qualified Code(s): F29 - Unspecified psychosis not due to a substance or known physiological condition Condition: Stable Instructions: ED Drug Abuse General, ED Psychosis Prescriptions: traZODone [Desyrel] 50 mg PO HS #30 tablet hydrOXYzine HCL [Hydroxyzine HCl] 50 mg PO BID #60 tablet clonazePAM [KlonoPIN] 0.5 mg PO BID PRN #20 tablet PRN Reason: Anxiety buPROPion [Wellbutrin Xl] 150 mg PO DAILY #30 tablet OLANZapine ODT [Zyprexa Odt] 5 mg TL BID #60 tablet Comments: Refills for your medications have been sent to [facility] in [place]. It is very important that you follow-up for your outpatient mental health evaluation and get help with your substance abuse. If you wish to have further evaluation of ears, you may schedule follow-up with the ENT specialist as you have been previously recommended to do. Discharge Date/Time: 01/07/22 18:09
== END 2022-01-07 18:09 | disposition home or self-care (01) ==
LOC: ED 16:59
DX: F29 Unspecified psychosis not due to a substance or known physiological condition (principal); F15.10 Other stimulant abuse, uncomplicated; I10 Essential (primary) hypertension
CPT/HCPCS: 99284

== ENCOUNTER 2022-04-05 11:56 | Outpatient (CLI) | payer MEDICAID ==
[2022-04-05 14:57] LABS: BASOPHILS # (AUTO) 0.1 10^3/uL (0.0-0.1); EOSINOPHILS # (AUTO) 0.3 10^3/uL (0.0-0.7); EOSINOPHILS % (AUTO) 3.5 %; HCT - HEMATOCRIT 43.1 % (42.0-52.0); HGB - HEMOGLOBIN 14.6 g/dL (14.0-18.0); LYMPHOCYTES # (AUTO) 2.5 10^3/uL (1.5-3.5); LYMPHOCYTES % (AUTO) 30.2 %; MEAN CORPUSCULAR HEMOGLOBIN 28.4 pg (27.0-31.0); MEAN CORPUSCULAR HGB CONC 33.9 g/dL (32.0-36.0); MEAN CORPUSCULAR VOLUME 83.9 fL (80.0-94.0); MEAN PLATELET VOLUME 11.5 fL (7.4-11.4); MONOCYTES # (AUTO) 0.6 10^3/uL (0.0-1.0); MONOCYTES % (AUTO) 7.9 %; NEUTROPHILS # (AUTO) 4.6 10^3/uL (1.5-6.6); NEUTROPHILS % (AUTO) 56.9 %; PLT - PLATELET COUNT 268 10^3/uL (130-450); RED BLOOD COUNT 5.14 10^6/uL (4.70-6.10); RED CELL DISTRIBUTION WIDTH 12.1 % (12.0-15.0); WHITE BLOOD COUNT 8.1 x10^3/uL (4.8-10.8)
[2022-04-05 15:37] LABS: ALBUMIN 3.8 g/dL (3.2-5.5); ALBUMIN/GLOBULIN RATIO 1.2 (1.0-2.2); ALKALINE PHOSPHATASE 60 IU/L (42-121); ALT ALANINE AMINOTRANSFERASE 14 IU/L (10-60); AST ASPARTATE AMINOTRANSFERASE 12 IU/L (10-42); BILIRUBIN,TOTAL 0.9 mg/dL (0.2-1.0); BUN - BLOOD UREA NITROGEN 16 mg/dL (6-20); CALCIUM 9.1 mg/dL (8.5-10.3); CARBON DIOXIDE - CO2 29 mmol/L (21-32); CHLORIDE 108 mmol/L (101-111); CHOL/HDL RATIO 5.4 (<5.0); CHOLESTEROL 210 mg/dL; CREATININE 0.9 mg/dL (0.6-1.2); GFR - MDRD 91 (>89); GLUCOSE 130 mg/dL (70-100); HDL CHOLESTEROL 39 mg/dL; LDL CHOLESTEROL,CALCULATED 139 mg/dL; LDL/HDL RATIO 3.6 (<3.6); POTASSIUM 4.1 mmol/L (3.5-5.0); SODIUM 145 mmol/L (135-145); TOTAL PROTEIN 6.9 g/dL (6.7-8.2); TRIGLYCERIDES 160 mg/dL; VLDL CHOLESTEROL 32 mg/dL
== END 2022-04-05 11:57 | disposition home or self-care (01) ==
LOC: LAB.S 11:56
PROVIDERS: ATTEND Nurse Practitioner
DX: I10 Essential (primary) hypertension (principal); Z13.220 Encounter for screening for lipoid disorders
CPT/HCPCS: 36415; 80053; 80061; 83721; 85025

== ENCOUNTER 2022-07-03 07:47 | Outpatient (CLI) | payer MEDICAID ==
[2022-07-03 15:27] LABS: CREATININE,URINE 301.1 mg/dL; MICROALBUMIN,URINE 0.9 mg/dL (0-300.0)
[2022-07-03 20:27] LABS: ESTIMATED AVERAGE GLUCOSE 120 mg/dL (70-100); HEMOGLOBIN A1c% 5.8 % (4.27-6.07)
== END 2022-07-03 07:48 | disposition home or self-care (01) ==
LOC: LAB.S 07:47
PROVIDERS: ATTEND Nurse Practitioner
DX: E11.9 Type 2 diabetes mellitus without complications (principal)
CPT/HCPCS: 36415; 82043; 82570; 83036

== ENCOUNTER 2022-07-26 08:00 | Outpatient (CLI) | payer MEDICAID | END 2022-07-26 23:59 | disposition home or self-care (01) | LOC: LAB 08:00 | PROVIDERS: ATTEND Physician Assistant | DX: L03.032 Cellulitis of left toe (principal) | CPT/HCPCS: 87070; 87077; 87181; 87205 ==

== ENCOUNTER 2023-02-24 09:41 | Outpatient (CLI) | payer MEDICAID ==
[2023-02-24 16:05] LABS: ESTIMATED AVERAGE GLUCOSE 108 mg/dL (70-100); HEMOGLOBIN A1c% 5.4 % (4.27-6.07)
== END 2023-02-24 09:42 | disposition home or self-care (01) ==
LOC: LAB.S 09:41
PROVIDERS: ATTEND Nurse Practitioner
DX: E11.9 Type 2 diabetes mellitus without complications (principal)
CPT/HCPCS: 36415; 83036